=== PATIENT | female | born 1975 | race Caucasian/White ===

== ENCOUNTER 2019-03-05 21:55 | Emergency (ER) | payer SELFPAY ==
[~2019-03-05] VITALS: Ht 170.2 cm; Wt 154.2 kg
--- NOTE | 2019-03-05 22:14 | ED Neurological Problem ---
General Stated Complaint: DIZZY Source: patient Exam Limitations: no limitations History of Present Illness Date Seen by Provider: March 05, 2019 Time Seen by Provider: 21:58 Initial Comments 44-year-old female presents with "dizzy" patient reports that started just prior to arrival. Patient describes her dizziness as being "pain off balance maybe a little bit room spinning. Reports he gets worse with quick head movement. Patient reports she had an episode earlier today when she was at than the [facility]. She reports that that episode lasted about 5 minutes and then went away. Patient denies any recent illness, any chest pain, shortness of breath, nausea, vomiting. Patient reports she has a "pseudotumor and has had surgery on it. She does not have any focal neurologic complaints or focal weakness, difficulty speaking or vision changes. Allergies and Home Medications Allergies Coded Allergies: Penicillins (Verified Allergy, Unknown, 03/05/19) ciprofloxacin (Verified Allergy, Unknown, 03/05/19) Uncoded Allergies: ANY MED THAT INCREASES HEAD PRESSUR (Allergy, Unknown, 03/05/19) Patient Home Medication List Home Medication List Reviewed: Yes Review of Systems Review of Systems Constitutional: No chills, No diaphoresis; dizziness Eyes: Denies Blurred Vision, Denies Photophobia Ears, Nose, Mouth, Throat: denies ear pain Respiratory: No cough, No dyspnea on exertion Cardiovascular: No chest pain Gastrointestinal: No abdominal pain Genitourinary: no symptoms reported Musculoskeletal: no symptoms reported Psychiatric/Neurological: Denies Headache, Denies Numbness, Denies Tingling Past Melslgv-Dtqajx-Xeaphl Hx Past Med/Social Hx: Reviewed Nursing Past Med/Soc Hx Patient Social History Recent Foreign Travel: No Contact w/Someone Who Travel: No Physical Exam Vital Signs Vital Signs - First Documented 03/05/19 22:04 Temp 98.6 Pulse 90 Resp 24 B/P (MAP) 136/62 (86) Pulse Ox 95 O2 Delivery Room Air Capillary Refill : Height, Weight, BMI Height: '" Weight: lbs. oz. 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, no motor/sensory deficits, alert, normal mood/affect, oriented x 3 Crainal Nerves: normal hearing, normal speech, PERRL; No abnormal speech, No facial droop, No facial paresthesias, No facial weakness Motor/Sensory: no motor deficit, no sensory deficit, no pronator drift Focused Exam Lactate Level 03/05/19 22:12: Lactic Acid Level 1.60 Lactic Acid Level Laboratory Tests Test 03/05/19 22:12 Lactic Acid Level 1.60 MMOL/L (0.50-2.00) Progress/Results/Core Measures Results/Orders Lab Results Laboratory Tests Test 03/05/19 22:12 03/05/19 22:15 Range/Units White Blood Count 12.9 H 4.3-11.0 10^3/uL Red Blood Count 4.74 4.35-5.85 10^6/uL Hemoglobin 13.0 11.5-16.0 G/DL Hematocrit 41 35-52 % Mean Corpuscular Volume 85 80-99 FL Mean Corpuscular Hemoglobin 27 25-34 PG Mean Corpuscular Hemoglobin Concent 32 32-36 G/DL Red Cell Distribution Width 15.2 H 10.0-14.5 % Platelet Count 307 130-400 10^3/uL Mean Platelet Volume 10.4 7.4-10.4 FL Neutrophils (%) (Auto) 72 42-75 % Lymphocytes (%) (Auto) 22 12-44 % Monocytes (%) (Auto) 6 0-12 % Eosinophils (%) (Auto) 0 0-10 % Basophils (%) (Auto) 0 0-10 % Neutrophils # (Auto) 9.3 H 1.8-7.8 X 10^3 Lymphocytes # (Auto) 2.8 1.0-4.0 X 10^3 Monocytes # (Auto) 0.8 0.0-1.0 X 10^3 Eosinophils # (Auto) 0.0 0.0-0.3 10^3/uL Basophils # (Auto) 0.0 0.0-0.1 10^3/uL Sodium Level 144 135-145 MMOL/L Potassium Level 4.3 3.6-5.0 MMOL/L Chloride Level 106 98-107 MMOL/L Carbon Dioxide Level 20 L 21-32 MMOL/L Anion Gap 18 H 5-14 MMOL/L Blood Urea Nitrogen 33 H 7-18 MG/DL Creatinine 1.11 0.60-1.30 MG/DL Estimat Glomerular Filtration Rate 53 BUN/Creatinine Ratio 30 Glucose Level 188 H 70-105 MG/DL Lactic Acid Level 1.60 0.50-2.00 MMOL/L Calcium Level 9.2 8.5-10.1 MG/DL Corrected Calcium 9.1 8.5-10.1 MG/DL Magnesium Level 2.1 1.8-2.4 MG/DL Total Bilirubin 0.3 0.1-1.0 MG/DL Aspartate Amino Transf (AST/SGOT) 11 5-34 U/L Alanine Aminotransferase (ALT/SGPT) 12 0-55 U/L Alkaline Phosphatase 100 40-136 U/L Total Protein 7.3 6.4-8.2 GM/DL Albumin 4.1 3.2-4.5 GM/DL Glucometer 199 H 70-110 MG/DL My Orders Orders - LAGOS,AMADOR L DO Cbc With Automated Diff (03/05/19 22:05) Comprehensive Metabolic Panel (03/05/19 22:05) Lactic Acid Analyzer (03/05/19 22:05) Magnesium (03/05/19 22:05) Ua Culture If Indicated (03/05/19 22:05) Ct Head Wo-R/O Stroke (03/05/19 22:05) Chest 1 View Ap/Pa Only (03/05/19 22:05) Accucheck Stat ONCE (03/05/19 22:05) Ekg Tracing (03/05/19 22:05) Vital Signs/I&O 03/05/19 22:04 Temp 98.6 Pulse 90 Resp 24 B/P (MAP) 136/62 (86) Pulse Ox 95 O2 Delivery Room Air Progress Progress Note : Time: 23:33 Progress Note Patient's symptoms have completely resolved and feels similarly better after the meclizine. I discussed with her that her labs with her that she might be slightly dehydrated with a little bit of hemoconcentration is slight elevation her BUNs. Recommend she drinks plenty of fluids and stay hydrated. Otherwise she is better she will be discharged home with no other acute findings. She can use [id number]-tsp-[id number] meclizine as needed if the dizziness returns. She should follow-up with her primary care physician next week for recheck of her symptoms. Initial ECG Impression Date: March 05, 2019 Initial ECG Impression Time: 22:08 Initial ECG Rhythm: Normal Sinus Initial ECG Intervals: Normal Initial ECG Impression: Normal Departure Impression Primary Impression: Vertigo Disposition: 01 HOME, SELF-CARE Condition: Stable Departure-Patient Inst. Referrals: CLARKE RODRÍGUEZ MD (PCP) Primary Care Physician Patient Instructions: Vertigo (a Type of Dizziness) (DC) Add. Discharge Instructions: Drink plenty of fluids Follow-up through primary care physician next week for recheck of her symptoms AMADOR LAGOS DO March 05, 2019 22:14
[2019-03-05 22:42] LABS: BASOPHILS % (AUTO) 0 % (0-10); EOSINOPHILS % (AUTO) 0 % (0-10); HEMATOCRIT 41 % (35-52); LYMPHOCYTES # (AUTO) 2.8 X 10^3 (1.0-4.0); LYMPHOCYTES % (AUTO) 22 % (12-44); MEAN CORPUSCULAR HEMOGLOBIN 27 PG (25-34); MEAN CORPUSCULAR HGB CONC 32 G/DL (32-36); MEAN CORPUSCULAR VOLUME 85 FL (80-99); MEAN PLATELET VOLUME 10.4 FL (7.4-10.4); MONOCYTES # (AUTO) 0.8 X 10^3 (0.0-1.0); MONOCYTES % (AUTO) 6 % (0-12); NEUTROPHILS # (AUTO) 9.3 X 10^3 (1.8-7.8); NEUTROPHILS % (AUTO) 72 % (42-75); PLATELET COUNT 307 10^3/uL (130-400); RED CELL DISTRIBUTION WIDTH 15.2 % (10.0-14.5); WHITE BLOOD COUNT 12.9 10^3/uL (4.3-11.0)
[2019-03-05 22:49] LABS: ALBUMIN 4.1 GM/DL (3.2-4.5); BILIRUBIN,TOTAL 0.3 MG/DL (0.1-1.0); CALCIUM 9.2 MG/DL (8.5-10.1); CREATININE SERUM 1.11 MG/DL (0.60-1.30); MAGNESIUM 2.1 MG/DL (1.8-2.4); POTASSIUM 4.3 MMOL/L (3.6-5.0); TOTAL PROTEIN 7.3 GM/DL (6.4-8.2)
[2019-03-05 23:40] VITALS: BP 113/53
--- OUTSIDE RECORDS SUMMARY | 2019-03-06 01:09 | XMS REPORT | Referral Summary ---
Author Author [facility], [facility], Family Medicine Organization [facility], [facility] Address Unknown Phone Unavailable Care Team Providers Care Patient Relations Liaison Name Role Phone Jazmin Ferrell PCP Encounter VC Date(s): 02/07/16 - 02/07/16 [facility], [address] [id number] Discharge Diagnosis: Acute frontal sinusitis Discharge Disposition: 01-Home or Self Care Attending Physician: Zakia Kirkland APRN Admitting Physician: Zakia Kirkland APRN Vital Signs Most recent to 1 oldest [Reference Range]: Temperature Oral 36.5 degC [35.8-37.3 degC] (02/07/16 1:09 PM) Peripheral Pulse 67 bpm Rate [60-100 bpm] (02/07/16 1:09 PM) Blood Pressure 142/78 mmHg [90-140/60-90 mmHg] *HI* (02/07/16 1:09 PM) SpO2 96 % (02/07/16 1:09 PM) Problem List Condition Effective Dates Status Health Status Informant Allergic Active rhinitis(Confirmed) Pseudotumor Active cerebri(Confirmed) Diabetes(Confirmed) Active Hyperlipidemia(Confi Active rmed) Hypertension(Confirm Active ed) Morbid Active patient obesity(Confirmed) Allergies, Adverse Reactions, Alerts Substance Reaction Severity Status Cipro Active penicillins Active Medications doxycycline monohydrate 100 mg oral capsule 100 mg 1 caps, Oral, BID, X 7 days, # 14 caps, 0 Refill(s), Pharmacy: [id number] #[id number], 1 caps Oral BID,x7 days Start Date: 02/07/16 Stop Date: 02/14/16 Status: Ordered glyBURIDE 5 mg oral tablet 5 mg, Oral, Daily, # 90 tabs, 1 Refill(s), Pharmacy: [facility]/pharmacy #[id number], 5 mg O ral Daily Start Date: 01/25/16 Status: Ordered lisinopril 5 mg oral tablet 5 mg, Oral, Daily, # 90 tabs, 1 Refill(s), Pharmacy: [facility]/pharmacy #[id number], 5 mg O ral Daily Start Date: 01/25/16 Status: Ordered metFORMIN 1000 mg oral tablet, extended release 1,000 mg 1 tabs, Oral, BID, # 180 tabs, 1 Refill(s), [id number], 1 tabs Oral BID Start Date: 01/25/16 Status: Ordered Nasacort AQ sprays, Nasal, Daily, 0 Refill(s) Start Date: 01/23/16 Status: Ordered simvastatin 40 mg oral tablet 40 mg, Oral, Bedtime (once a day), # 90 tabs, 1 Refill(s), Pharmacy: [facility]/pharmac y #[id number], 40 mg Oral Bedtime (once a day) Start Date: 01/25/16 Status: Ordered Results No data available for this section Immunizations No data available for this section Procedures Procedure Date Related Diagnosis Body Site Cholecystectomy Partial hysterectomy1 Tonsillectomy 1has both ovaries Social History Social History Type Response Smoking Status Former smoker Assessment and Plan Extracted from: Title: Office Visit Note Author: Zakia Kirkland APRN Date: 02/07/16 Assessment/Plan 1.Acute frontal sinusitis rx doxycycline 100mg po bid x 7 days Mucinex bid PRN continue Nasacort daily discussed s./s of worrisome symptoms verbal understanding noted Ordered: Office Visit Level 3 Est 88200 Orders: doxycycline, 100 mg 1 caps, Oral, BID, X 7 days, # 14 caps, 0 Refill(s), Pharmacy: [facility]/pharmacy #[id number], 1 caps Oral BID,x7 days
--- OUTSIDE RECORDS SUMMARY | 2019-03-06 01:09 | XMS REPORT | Referral Summary ---
Author Author [facility], [facility], Family Medicine Organization [facility], [facility] Address Unknown Phone Unavailable Care Team Providers Care Decorative Cutting Machine Tender Name Role Phone Jazmin Ferrell PCP Encounter [facility] [id number] Date(s): 04/23/16 - 04/23/16 [facility], [facility] [address] [place] [id number] Discharge Diagnosis: Diabetes Discharge Diagnosis: Hypertension Discharge Disposition: 01-Home or Self Care Attending Physician: Jazmin Ferrell MD Admitting Physician: Jazmin Ferrell MD Vital Signs Most recent to 1 oldest [Reference Range]: Peripheral Pulse 77 bpm Rate [60-100 bpm] (04/23/16 9:40 AM) Blood Pressure 138/82 mmHg [90-140/60-90 mmHg] (04/23/16 9:40 AM) SpO2 98 % (04/23/16 9:40 AM) Problem List Condition Effective Dates Status Health Status Informant Allergic Active rhinitis(Confirmed) Pseudotumor Active cerebri(Confirmed) Diabetes(Confirmed) Active Hyperlipidemia(Confi Active rmed) Hypertension(Confirm Active ed) Morbid Active patient obesity(Confirmed) Allergies, Adverse Reactions, Alerts Substance Reaction Severity Status Cipro Active penicillins Active Medications glyBURIDE 5 mg oral tablet 5 mg, Oral, Daily, # 90 tabs, 1 Refill(s), Pharmacy: [facility]/pharmacy #[id number], 5 mg O ral Daily Start Date: 04/23/16 Status: Ordered lisinopril 5 mg oral tablet 5 mg, Oral, Daily, # 90 tabs, 1 Refill(s), Pharmacy: [facility]/pharmacy #[id number], 5 mg O ral Daily Start Date: 04/23/16 Status: Ordered metFORMIN 1000 mg oral tablet 1,000 mg 1 tabs, Oral, BID, # 180 tabs, 1 Refill(s), Pharmacy: [facility]/pharmacy #[id number], 1 tabs Oral BID Start Date: 04/23/16 Status: Ordered Nasacort AQ sprays, Nasal, Daily, 0 Refill(s) Start Date: 01/23/16 Status: Ordered simvastatin 40 mg oral tablet 40 mg, Oral, Bedtime (once a day), # 90 tabs, 1 Refill(s), Pharmacy: [facility]/pharmac y #[id number], 40 mg Oral Bedtime (once a day) Start Date: 04/23/16 Status: Ordered Results Chemistry Most recent to 1 oldest [Reference Range]: Sodium Lvl [135-144 141 mEq/L mEq/L] (04/23/16 10:07 AM) Potassium Lvl 4.3 mEq/L [3.5-5.2 mEq/L] (04/23/16 10:07 AM) Chloride [99-111 105 mEq/L mEq/L] (04/23/16 10:07 AM) CO2 [22-31 mEq/L] 26 mEq/L (04/23/16 10:07 AM) AGAP [3-20] 10 (04/23/16 10:07 AM) BUN [7-19 mg/dL] 9 mg/dL (04/23/16 10:07 AM) Glucose Lvl [70-99 146 mg/dL mg/dL] *HI* (04/23/16 10:07 AM) Creatinine Lvl 0.85 mg/dL [0.57-1.11 mg/dL] (04/23/16 10:07 AM) eGFR [>60 mL/min] >60 mL/min 1 (04/23/16 10:07 AM) Calcium Lvl 9.5 mg/dL [8.9-10.5 mg/dL] (04/23/16 10:07 AM) Albumin Lvl [3.5-5.0 4.1 gm/dL gm/dL] (04/23/16 10:07 AM) Total Protein 6.8 gm/dL 2 [6.1-7.7 gm/dL] (04/23/16 10:07 AM) Globulin [1.8-4.0 2.7 gm/dL gm/dL] (04/23/16 10:07 AM) ALT [0-55 U/L] 21 U/L (04/23/16 10:07 AM) AST [5-34 U/L] 16 U/L (04/23/16 10:07 AM) Alk Phos [40-150 104 U/L U/L] (04/23/16 10:07 AM) Bili Total [0.2-1.2 0.5 mg/dL mg/dL] (04/23/16 10:07 AM) Chol [0-199 mg/dL] 164 mg/dL (04/23/16 10:07 AM) Trig [0-149 mg/dL] 178 mg/dL *HI* (04/23/16 10:07 AM) HDL [40-84 mg/dL] 37 mg/dL *LOW* (04/23/16 10:07 AM) LDL [0-130 mg/dL] 91 mg/dL (04/23/16 10:07 AM) VLDL Cholesterol 36 mg/dL [0-28 mg/dL] *HI* (04/23/16 10:07 AM) Cardiac Risk 4.4 [0.0-5.0] (04/23/16 10:07 AM) Hgb A1c [4.1-5.6 %] 7.9 % *HI* (04/23/16 10:07 AM) eAvg Glucose 180.0 mg/dL (04/23/16 10:07 AM) 1Result Comment: Multiply eGFR results by 1.21 for race. 2Result Comment: Please note new reference range for adult Protein. Immunizations Vaccine Date Refusal Reason tetanus/diphth/pertuss (Tdap) adult/adol1 03/14/16 1Result Comment: Injected with 25G 1 neddle Procedures Procedure Date Related Diagnosis Body Site Cholecystectomy Partial hysterectomy1 Tonsillectomy 1has both ovaries Social History Social History Type Response Smoking Status Former smoker Assessment and Plan Extracted from: Title: WWE Author: Jazmin Ferrell MD Date: 04/23/16 Assessment/Plan 1.Diabetes 2.Hypertension Well woman exam No further PAP. Mammogram declines. Fasting blood work today and microalbumin today. RTC in 3 months. Ordered: Albumin Level Urine Comprehensive Metabolic Panel Hemoglobin A1c Lipid Panel Extracted from: Title: Ambulatory Patient Education Author: Ramesh Sy MA Date: 04/23/16 Preventive Medicine Health Maintenance, Female Adopting a healthy lifestyle and getting preventive care can go a long way to promote health and wellness. Talk with your health care provider about what schedule of regular examinations is right for you. This is a good chance for you to check in with your provider about disease prevention and staying healthy. In between checkups, there are plenty of things you can do on your own. Experts have done a lot of research about which lifestyle changes and preventive measures are most likely to keep you healthy. Ask your health care provider for more information. WEIGHT AND DIET Eat a healthy diet Be sure to include plenty of vegetables, fruits, low-fat dairy products, and lean protein. Do not eat a lot of foods high in solid fats, added sugars, or salt. Get regular exercise. This is one of the most important things you can do for your health. Most adults should exercise for at least 150 minutes each week. The exercise should increase your heart rate and make you sweat (moderate-intensity exercise). Most adults should also do strengthening exercises at least twice a week. This is in addition to the moderate-intensity exercise. Maintain a healthy weight Body mass index (BMI) is a measurement that can be used to identify possible weight problems. It estimates body fat based on height and weight. Your health care provider can help determine your BMI and help you achieve or maintain a healthy weight. For females 20 years of age and older: A BMI below 18.5 is considered underweight. A BMI of 18.5 to 24.9 is normal. A BMI of 25 to 29.9 is considered overweight. A BMI of 30 and above is considered obese. Watch levels of cholesterol and blood lipids You should start having your blood tested for lipids and cholesterol at 20 years of age, then have this test every 5 years. You may need to have your cholesterol levels checked more often if: Your lipid or cholesterol levels are high. You are older than 50 years of age. You are at high risk for heart disease. CANCER SCREENING Lung Cancer Lung cancer screening is recommended for adults 55 80 years old who are at high risk for lung cancer because of a history of smoking. A yearly low-dose CT scan of the lungs is recommended for people who: Currently smoke. Have quit within the past 15 years. Have at least a 70-mnvu-vitd history of smoking. A pack year is smoking an average of one pack of cigarettes a day for 1 year. Yearly screening should continue until it has been 15 years since you quit. Yearly screening should stop if you develop a health problem that would prevent you from having lung cancer treatment. Breast Cancer Practice breast self-awareness. This means understanding how your breasts normally appear and feel. It also means doing regular breast self-exams. Let your health care provider know about any changes, no matter how small. If you are in your 20s or 30s, you should have a clinical breast exam (CBE) by a health care provider every 1 3 years as part of a regular health exam. If you are 40 or older, have a CBE every year. Also consider having a breast X-ray (mammogram) every year. If you have a family history of breast cancer, talk to your health care provider about genetic screening. If you are at high risk for breast cancer, talk to your health care provider about having an MRI and a mammogram every year. Breast cancer gene (BRCA) assessment is recommended for women who have family members with BRCA-related cancers. BRCA-related cancers include: Breast. Ovarian. Tubal. Peritoneal cancers. Results of the assessment will determine the need for genetic counseling and BRCA1 and BRCA2 testing. Cervical Cancer Your health care provider may recommend that you be screened regularly for cancer of the pelvic organs (ovaries, uterus, and vagina). This screening involves a pelvic examination, including checking for microscopic changes to the surface of your cervix (Pap test). You may be encouraged to have this screening done every 3 years, beginning at age 21. For women ages 30 65, health care providers may recommend pelvic exams and Pap testing every 3 years, or they may recommend the Pap and pelvic exam, combined with testing for human papilloma virus (HPV), every 5 years. Some types of HPV increase your risk of cervical cancer. Testing for HPV may also be done on women of any age with unclear Pap test results. Other health care providers may not recommend any screening for non women who are considered low risk for pelvic cancer and who do not have symptoms. Ask your health care provider if a screening pelvic exam is right for you. If you have had past treatment for cervical cancer or a condition that could lead to cancer, you need Pap tests and screening for cancer for at least 20 years after your treatment. If Pap tests have been discontinued, your risk factors (such as having a new sexual partner) need to be reassessed to determine if screening should resume. Some women have medical problems that increase the chance of getting cervical cancer. In these cases, your health care provider may recommend more frequent screening and Pap tests. Colorectal Cancer This type of cancer can be detected and often prevented. Routine colorectal cancer screening usually begins at 50 years of age and continues through 75 years of age. Your health care provider may recommend screening at an earlier age if you have risk factors for colon cancer. Your health care provider may also recommend using home test kits to check for hidden blood in the stool. A small camera at the end of a tube can be used to examine your colon directly (sigmoidoscopy or colonoscopy). This is done to check for the earliest forms of colorectal cancer. Routine screening usually begins at age 50. Direct examination of the colon should be repeated every 5 10 years through 75 years of age. However, you may need to be screened more often if early forms of precancerous polyps or small growths are found. Skin Cancer Check your skin from head to toe regularly. Tell your health care provider about any new moles or changes in moles, especially if there is a change in a mole's shape or color. Also tell your health care provider if you have a mole that is larger than the size of a pencil eraser. Always use sunscreen. Apply sunscreen liberally and repeatedly throughout the day. Protect yourself by wearing long sleeves, pants, a wide-brimmed hat, and sunglasses whenever you are outside. HEART DISEASE, DIABETES, AND HIGH BLOOD PRESSURE High blood pressure causes heart disease and increases the risk of stroke. High blood pressure is more likely to develop in: People who have blood pressure in the high end of the normal range (130 139/85 89 mm Hg). People who are overweight or obese. People who are . If you are 18 39 years of age, have your blood pressure checked every 3 5 years. If you are 40 years of age or older, have your blood pressure checked every year. You should have your blood pressure measured twice once when you are at a hospital or clinic, and once when you are not at a hospital or clinic. Record the average of the two measurements. To check your blood pressure when you are not at a hospital or clinic, you can use: An automated blood pressure machine at a pharmacy. A home blood pressure monitor. If you are between 55 years and 79 years old, ask your health care provider if you should take aspirin to prevent strokes. Have regular diabetes screenings. This involves taking a blood sample to check your fasting blood sugar level. If you are at a normal weight and have a low risk for diabetes, have this test once every three years after 45 years of age. If you are overweight and have a high risk for diabetes, consider being tested at a younger age or more often. PREVENTING INFECTION Hepatitis B If you have a higher risk for hepatitis B, you should be screened for this virus. You are considered at high risk for hepatitis B if: You were born in a country where hepatitis B is common. Ask your health care provider which countries are considered high risk. Your parents were born in a high-risk country, and you have not been immunized against hepatitis B (hepatitis B vaccine). You have HIV or AIDS. You use needles to inject street drugs. You live with someone who has hepatitis B. You have had sex with someone who has hepatitis B. You get hemodialysis treatment. You take certain medicines for conditions, including cancer, organ transplantation, and autoimmune conditions. Hepatitis C Blood testing is recommended for: Everyone born from 1945 through 1965. Anyone with known risk factors for hepatitis C. Sexually transmitted infections (STIs) You should be screened for sexually transmitted infections (STIs) including gonorrhea and chlamydia if: You are sexually active and are younger than 24 years of age. You are older than 24 years of age and your health care provider tells you that you are at risk for this type of infection. Your sexual activity has changed since you were last screened and you are at an increased risk for chlamydia or gonorrhea. Ask your health care provider if you are at risk. If you do not have HIV, but are at risk, it may be recommended that you take a prescription medicine daily to prevent HIV infection. This is called pre- exposure prophylaxis (PrEP). You are considered at risk if: You are sexually active and do not regularly use condoms or know the HIV status of your partner(s). You take drugs by injection. You are sexually active with a partner who has HIV. Talk with your health care provider about whether you are at high risk of being infected with HIV. If you choose to begin PrEP, you should first be tested for HIV. You should then be tested every 3 months for as long as you are taking PrEP. If you are premenopausal and you may become , ask your health care provider about preconception counseling. If you may become , take 400 to 800 micrograms (mcg) of folic acid every day. If you want to prevent , talk to your health care provider about control (contraception). OSTEOPOROSIS AND MENOPAUSE Osteoporosis is a disease in which the bones lose minerals and strength with aging. This can result in serious bone fractures. Your risk for osteoporosis can be identified using a bone density scan. If you are 65 years of age or older, or if you are at risk for osteoporosis and fractures, ask your health care provider if you should be screened. Ask your health care provider whether you should take a calcium or vitamin D supplement to lower your risk for osteoporosis. Menopause may have certain physical symptoms and risks. Hormone replacement therapy may reduce some of these symptoms and risks. Talk to your health care provider about whether hormone replacement therapy is right for you. HOME CARE INSTRUCTIONS Schedule regular health, dental, and eye exams. Stay current with your immunizations. Do not use any tobacco products including cigarettes, chewing tobacco, or electronic cigarettes. If you are , do not drink alcohol. If you are , limit how much and how often you drink alcohol. Limit alcohol intake to no more than 1 drink per day for non women. One drink equals 12 ounces of beer, 5 ounces of wine, or 1 ounces of hard liquor. Do not use street drugs. Do not share needles. Ask your health care provider for help if you need support or information about quitting drugs. Tell your health care provider if you often feel depressed. Tell your health care provider if you have ever been abused or do not feel safe at home. This information is not intended to replace advice given to you by your health care provider. Make sure you discuss any questions you have with your health care provider. Document Released: 04/13/2012 Document Revised: 10/20/2015 Document Reviewed: 08/31/2014 Exit[employer] Patient Information 2016 [employer]. No follow up information was provided.
--- OUTSIDE RECORDS SUMMARY | 2019-03-06 01:10 | XMS REPORT | Referral Summary ---
Author Author [facility], [facility], Family Medicine Organization [facility], [facility] Address Unknown Phone Unavailable Care Team Providers Care Negative Notcher Name Role Phone Jazmin Ferrell PCP Encounter [facility] Date(s): 08/07/16 - 08/07/16 [facility], [facility], Family Medicine [address] [place] [id number] Discharge Disposition: 01-Home or Self Care Attending Physician: Jazmin Ferrell MD Admitting Physician: Jazmin Ferrell MD Vital Signs Most recent to 1 oldest [Reference Range]: Peripheral Pulse 79 bpm Rate [60-100 bpm] (08/07/16 2:42 PM) Blood Pressure 126/80 mmHg [90-140/60-90 mmHg] (08/07/16 2:42 PM) SpO2 97 % (08/07/16 2:42 PM) Problem List Condition Effective Dates Status Health Status Informant Allergic Active rhinitis(Confirmed) Pseudotumor Active cerebri(Confirmed) Diabetes(Confirmed) Active Hyperlipidemia(Confi Active rmed) Hypertension(Confirm Active ed) Morbid Active patient obesity(Confirmed) Allergies, Adverse Reactions, Alerts Substance Reaction Severity Status Cipro Active penicillins Active Medications lisinopril 10 mg oral tablet 10 mg 1 tabs, Oral, Daily, # 90 tabs, 1 Refill(s), Pharmacy: [facility]/pharmacy #[id number] , 1 tabs Oral Daily Start Date: 04/24/16 Status: Ordered metFORMIN 1000 mg oral tablet 1,000 mg 1 tabs, Oral, BID, # 180 tabs, 1 Refill(s), Pharmacy: [facility]/pharmacy #[id number], 1 tabs Oral BID Start Date: 04/23/16 Status: Ordered Nasacort AQ sprays, Nasal, Daily, 0 Refill(s) Start Date: 01/23/16 Status: Ordered simvastatin 40 mg oral tablet 40 mg, Oral, Bedtime (once a day), # 90 tabs, 1 Refill(s), Pharmacy: [facility]/pharmac y #[id number], 40 mg Oral Bedtime (once a day) Start Date: 07/24/16 Status: Ordered Results Chemistry Most recent to 1 oldest [Reference Range]: TSH with Reflex Free 2.17 T4 [0.35-4.94] (08/07/16 2:57 PM) Immunizations Vaccine Date Refusal Reason tetanus/diphth/pertuss (Tdap) adult/adol1 03/14/16 1Result Comment: Injected with 25G 1 neddle Procedures Procedure Date Related Diagnosis Body Site Cholecystectomy Partial hysterectomy1 Tonsillectomy 1has both ovaries Social History Social History Type Response Smoking Status Former smoker Assessment and Plan Extracted from: Title: Office Visit Note Author: Jazmin Ferrell MD Date: 08/07/16 Assessment/Plan Hair loss Will check TSh today. D/W ptdifferential being hormonal hair loss and telogen effluvium from weight loss Ordered: Routine Venipuncture TSH with Reflex Free T4
--- OUTSIDE RECORDS SUMMARY | 2019-03-06 01:10 | XMS REPORT | Referral Summary ---
Author Author [facility], [facility], Family Medicine Organization [facility], [facility] Address Unknown Phone Unavailable Care Team Providers Care Investigative Research Specialist Name Role Phone Jazmin Ferrell PCP Encounter [facility] Date(s): 11/12/16 - 11/12/16 [facility], [facility], Family Medicine [address] [place] [id number] Discharge Diagnosis: Hypertension Discharge Disposition: 01-Home or Self Care Attending Physician: Jazmin Ferrell MD Admitting Physician: Jazmin Ferrell MD Vital Signs Most recent to 1 oldest [Reference Range]: Peripheral Pulse 81 bpm Rate [60-100 bpm] (11/12/16 10:23 AM) Blood Pressure 142/82 mmHg [90-140/60-90 mmHg] *HI* (11/12/16 10:23 AM) SpO2 98 % (11/12/16 10:23 AM) Problem List Condition Effective Dates Status Health Status Informant Allergic Active rhinitis(Confirmed) Pseudotumor Active cerebri(Confirmed) Diabetes(Confirmed) Active Hyperlipidemia(Confi Active rmed) Hypertension(Confirm Active ed) Morbid Active patient obesity(Confirmed) Allergies, Adverse Reactions, Alerts Substance Reaction Severity Status Cipro Active penicillins Active Medications lisinopril 10 mg oral tablet See Instructions, TAKE 1 TABLET BY MOUTH DAILY., # 90 tabs, 1 Refill(s), [facility]Rx: [facility] #[id number] Start Date: 10/21/16 Status: Ordered metFORMIN 1000 mg oral tablet See Instructions, TAKE 1 TABLET BY MOUTH TWICE A DAY, # 180 tabs, 1 Refill(s), e Rx: [facility] #[id number] Start Date: 10/21/16 Status: Ordered Nasacort AQ sprays, Nasal, Daily, 0 Refill(s) Start Date: 01/23/16 Status: Ordered simvastatin 40 mg oral tablet 40 mg, Oral, Bedtime (once a day), # 90 tabs, 1 Refill(s), Pharmacy: [facility]/pharmac y #[id number], 40 mg Oral Bedtime (once a day) Start Date: 07/24/16 Status: Ordered Results Chemistry Most recent to 1 oldest [Reference Range]: Hgb A1c [4.1-5.6 %] 7.7 % *HI* (11/12/16 10:34 AM) eAvg Glucose 174.3 mg/dL (11/12/16 10:34 AM) Immunizations Given and Recorded Vaccine Date Status Refusal Reason tetanus/diphth/pertuss (Tdap) adult/adol1 03/14/16 Given 1Result Comment: Injected with 25G 1 neddle Procedures Procedure Date Related Diagnosis Body Site Collection of venous blood by venipuncture 11/12/16 Cholecystectomy Partial hysterectomy1 Tonsillectomy 1has both ovaries Social History Social History Type Response Smoking Status Former smoker Assessment and Plan Extracted from: Title: Chronic Author: Jazmin Ferrell MD Date: 11/12/16 Assessment/Plan 1.Hypertension Monitor. Dietary changes and recheck with next appt. Diabetes A1C and microalbumin today. Ordered: Albumin Level Urine Collection Of Venous Blood By Venipuncture [id number] Hemoglobin A1c
--- OUTSIDE RECORDS SUMMARY | 2019-03-06 01:10 | XMS REPORT | Referral Summary ---
Author Author [facility], [facility], Family Medicine Organization [facility], [facility] Address Unknown Phone Unavailable Care Team Providers Care Bead Trimmer Name Role Phone Jazmin Ferrell PCP Encounter VC Date(s): 01/23/16 - 01/23/16 [facility], [facility] Medicine [address] [place] [id number] Discharge Diagnosis: Pseudotumor cerebri Discharge Diagnosis: Diabetes Discharge Diagnosis: Hyperlipidemia Discharge Diagnosis: Hypertension Discharge Disposition: 01-Home or Self Care Attending Physician: Jazmin Ferrell MD Vital Signs Most recent to 1 oldest [Reference Range]: Peripheral Pulse 78 bpm Rate [60-100 bpm] (01/23/16 12:52 PM) Blood Pressure 128/82 mmHg [90-140/60-90 mmHg] (01/23/16 12:52 PM) SpO2 96 % (01/23/16 12:52 PM) Problem List Condition Effective Dates Status Health Status Informant Allergic Active rhinitis(Confirmed) Pseudotumor Active cerebri(Confirmed) Diabetes(Confirmed) Active Hyperlipidemia(Confi Active rmed) Hypertension(Confirm Active ed) Morbid Active patient obesity(Confirmed) Allergies, Adverse Reactions, Alerts Substance Reaction Severity Status Cipro Active penicillins Active Medications glyBURIDE 5 mg oral tablet 5 mg, Oral, Daily, # 90 tabs, 1 Refill(s), Pharmacy: [facility], 5 m g Oral Daily Start Date: 01/23/16 Status: Ordered lisinopril 5 mg oral tablet 5 mg, Oral, Daily, # 90 tabs, 1 Refill(s), Pharmacy: [facility], 5 m g Oral Daily Start Date: 01/23/16 Status: Ordered metFORMIN 1000 mg oral tablet 1,000 mg, Oral, BID, # 180 tabs, 1 Refill(s), Pharmacy: [facility], 1,000 mg Oral BID Start Date: 01/23/16 Status: Ordered Nasacort AQ sprays, Nasal, Daily, 0 Refill(s) Start Date: 01/23/16 Status: Ordered simvastatin 40 mg oral tablet 40 mg, Oral, Bedtime (once a day), # 90 tabs, 1 Refill(s), Pharmacy: [facility], 40 mg Oral Bedtime (once a day) Start Date: 01/23/16 Status: Ordered Results Chemistry Most recent to 1 oldest [Reference Range]: Sodium Lvl [135-144 139 mEq/L mEq/L] (01/23/16 1:27 PM) Potassium Lvl 4.6 mEq/L [3.5-5.2 mEq/L] (01/23/16 1:27 PM) Chloride [99-111 103 mEq/L mEq/L] (01/23/16 1:27 PM) CO2 [22-31 mEq/L] 29 mEq/L (01/23/16 1:27 PM) AGAP [3-20] 7 (01/23/16 1:27 PM) BUN [7-19 mg/dL] 9 mg/dL (01/23/16 1:27 PM) Glucose Lvl [70-99 256 mg/dL mg/dL] *HI* (01/23/16 1:27 PM) Creatinine Lvl 0.86 mg/dL [0.57-1.11 mg/dL] (01/23/16 1:27 PM) eGFR [>60 mL/min] >60 mL/min 1 (01/23/16 1:27 PM) Calcium Lvl 8.9 mg/dL [8.9-10.5 mg/dL] (01/23/16 1:27 PM) Albumin Lvl [3.5-5.0 3.9 gm/dL gm/dL] (01/23/16 1:27 PM) Total Protein 6.7 gm/dL [6.4-8.3 gm/dL] (01/23/16 1:27 PM) Globulin [1.8-4.0 2.8 gm/dL gm/dL] (01/23/16 1:27 PM) ALT [0-55 U/L] 13 U/L (01/23/16 1:27 PM) AST [5-34 U/L] 10 U/L (01/23/16 1:27 PM) Alk Phos [40-150 103 U/L U/L] (01/23/16 1:27 PM) Bili Total [0.2-1.2 0.3 mg/dL mg/dL] (01/23/16 1:27 PM) Hgb A1c [4.1-5.6 %] 7.3 % *HI* (01/23/16 1:27 PM) eAvg Glucose 162.8 mg/dL (01/23/16 1:27 PM) 1Result Comment: Multiply eGFR results by 1.21 for race. Immunizations No data available for this section Procedures Procedure Date Related Diagnosis Body Site Cholecystectomy Partial hysterectomy1 Tonsillectomy 1has both ovaries Social History Social History Type Response Smoking Status Former smoker Assessment and Plan Extracted from: Title: Office Visit Note Author: Jazmin Ferrell MD Date: 01/23/16 Assessment/Plan Diabetes A1c today. Physical in 3 months. Refill meds. Record release today. Ordered: Comprehensive Metabolic Panel Hemoglobin A1c Hyperlipidemia Fasting lipid with upcoming physical. Meds refilled. Ordered: Comprehensive Metabolic Panel Hypertension Stable on current regimen Ordered: Comprehensive Metabolic Panel Pseudotumor cerebri Needs eye appt - pt will schedule. stable.
--- OUTSIDE RECORDS SUMMARY | 2019-03-06 01:10 | XMS REPORT | Referral Summary ---
Author Author [facility], [facility], Family Medicine Organization [facility], [facility] Family [facility] Address Unknown Phone Unavailable Care Team Providers Care Oncology Rep Name Role Phone Jazmin Ferrell PCP Encounter VC Date(s): 05/28/16 - 05/28/16 [facility], [facility], Family Medicine [address] [place] [id number] Discharge Disposition: 01-Home or Self Care Attending Physician: Jazmin Ferrell MD Admitting Physician: Jazmin Ferrell MD Vital Signs No data available for this section Problem List Condition Effective Dates Status Health Status Informant Allergic Active rhinitis(Confirmed) Pseudotumor Active cerebri(Confirmed) Diabetes(Confirmed) Active Hyperlipidemia(Confi Active rmed) Hypertension(Confirm Active ed) Morbid Active patient obesity(Confirmed) Allergies, Adverse Reactions, Alerts Substance Reaction Severity Status Cipro Active penicillins Active Medications glyBURIDE 5 mg oral tablet 5 mg, Oral, Daily, # 90 tabs, 1 Refill(s), Pharmacy: [facility]/pharmacy #[id number], 5 mg O ral Daily Start Date: 04/23/16 Status: Ordered lisinopril 10 mg oral tablet 10 mg 1 tabs, Oral, Daily, # 90 tabs, 1 Refill(s), Pharmacy: [facility]/pharmacy #[id number] , 1 tabs Oral Daily Start Date: 04/24/16 Status: Ordered metFORMIN 1000 mg oral tablet 1,000 mg 1 tabs, Oral, BID, # 180 tabs, 1 Refill(s), Pharmacy: [facility]/pharmacy #[id number], 1 tabs Oral BID Start Date: 04/23/16 Status: Ordered Nasacort AQ sprays, Nasal, Daily, 0 Refill(s) Start Date: 01/23/16 Status: Ordered simvastatin 40 mg oral tablet 40 mg, Oral, Bedtime (once a day), # 90 tabs, 1 Refill(s), Pharmacy: [facility][id number], 40 mg Oral Bedtime (once a day) Start Date: 04/23/16 Status: Ordered Results No data available for this section Immunizations Vaccine Date Refusal Reason tetanus/diphth/pertuss (Tdap) adult/adol1 03/14/16 1Result Comment: Injected with 25G 1 neddle Procedures Procedure Date Related Diagnosis Body Site Cholecystectomy Partial hysterectomy1 Tonsillectomy 1has both ovaries Social History Social History Type Response Smoking Status Former smoker Assessment and Plan No data available for this section
--- OUTSIDE RECORDS SUMMARY | 2019-03-06 01:10 | XMS REPORT | Referral Summary ---
Author Author [facility] Organization [facility] Address Unknown Phone Unavailable Care Team Providers Care Neighborhood Worker Name Role Phone Jazmin Ferrell PCP Encounter [facility] [id number] Date(s): 03/13/16 - 03/13/16 [facility] [address] [place] [address] [facility] Discharge Diagnosis: Insect bite Discharge Disposition: 01-Home or Self Care Attending Physician: Jack ChristieC Attending Physician: Provider, Immediate Care Admitting Physician: Provider, Immediate Care Vital Signs Most recent to 1 oldest [Reference Range]: Temperature Oral 37.1 degC [35.8-37.3 degC] (03/13/16 1:13 PM) Peripheral Pulse 106 bpm Rate [60-100 bpm] *HI* (03/13/16 1:13 PM) SpO2 94 % (03/13/16 1:13 PM) Problem List Condition Effective Dates Status Health Status Informant Allergic Active rhinitis(Confirmed) Pseudotumor Active cerebri(Confirmed) Diabetes(Confirmed) Active Hyperlipidemia(Confi Active rmed) Hypertension(Confirm Active ed) Morbid Active patient obesity(Confirmed) Allergies, Adverse Reactions, Alerts Substance Reaction Severity Status Cipro Active penicillins Active Medications clindamycin 300 mg oral capsule 300 mg 1 caps, Oral, q8hr, X 10 days, # 30 caps, 0 Refill(s), [id number], 1 caps Oral q8hr,x10 days Start Date: 03/13/16 Stop Date: 03/23/16 Status: Ordered glyBURIDE 5 mg oral tablet 5 mg, Oral, Daily, # 90 tabs, 1 Refill(s), Pharmacy: [facility]/pharmacy #[id number], 5 mg O ral Daily Start Date: 01/25/16 Status: Ordered lisinopril 5 mg oral tablet 5 mg, Oral, Daily, # 90 tabs, 1 Refill(s), Pharmacy: [facility]/pharmacy #[id number], 5 mg O ral Daily Start Date: 01/25/16 Status: Ordered metFORMIN 1000 mg oral tablet, extended release 1,000 mg 1 tabs, Oral, BID, # 180 tabs, 1 Refill(s), Pharmacy: [facility]/pharmacy #100 70, 1 tabs Oral BID Start Date: 01/25/16 Status: Ordered Nasacort AQ sprays, Nasal, Daily, 0 Refill(s) Start Date: 01/23/16 Status: Ordered predniSONE 20 mg oral tablet 20 mg 1 tabs, Oral, BID, X 5 days, # 10 tabs, 0 Refill(s), [facility]: [facility][id number], 1 tabs Oral BID,x5 days Start Date: 03/13/16 Stop Date: 03/18/16 Status: Ordered simvastatin 40 mg oral tablet 40 mg, Oral, Bedtime (once a day), # 90 tabs, 1 Refill(s), Pharmacy: [facility] #[id number], 40 mg Oral Bedtime (once a day) Start Date: 01/25/16 Status: Ordered Results No data available for this section Immunizations No data available for this section Procedures Procedure Date Related Diagnosis Body Site Cholecystectomy Partial hysterectomy1 Tonsillectomy 1has both ovaries Social History Social History Type Response Smoking Status Former smoker Assessment and Plan Extracted from: Title: Office Visit Note Author: Jack Christie PA-C Date: 03/13/16 Assessment/Plan 1.Insect bite Pt given rx for Clindamycin and prednisone; pt has taken oral prednisone before with complication and we discussed close monitoring of BS. No necrosis or abscess noted on exam. No fever, no chills/body aches/sweats. We discussed options for treatment including transfer to an ER for IV antibiotics/steroids/wound care, but pt declined. Risks and benefits discussed; pt was aware that delay of care could result in increased morbidity. Pt will monitor rash; if symptoms worsen she will go directly to an ER for further evaluation . Patient stable upon discharge, alert and orientated with no apparent distress, and indicated understanding of discharge instructions. Ordered: Office Visit Level 3 Est 36618 Orders: clindamycin, 300 mg 1 caps, Oral, q8hr, X 10 days, # 30 caps, 0 Refill(s), Pharmacy: [facility]/pharmacy #[id number], 1 caps Oral q8hr,x10 days predniSONE, 20 mg 1 tabs, Oral, BID, X 5 days, # 10 tabs, 0 Refill(s), Pharmacy: [facility]/pharmacy #[id number], 1 tabs Oral BID,x5 days
--- OUTSIDE RECORDS SUMMARY | 2019-03-06 01:10 | XMS REPORT | Referral Summary ---
Author Author [facility] Organization [facility] Address Unknown Phone Unavailable Care Team Providers Care Scrap Sorter Name Role Phone No PCP, Pt States PCP Encounter VC Date(s): 10/03/15 - 10/03/15 [facility] [address] [place] [address] [facility] Discharge Disposition: 01-Home or Self Care Attending Physician: Jack Christie PA-C Attending Physician: Provider, Immediate Care Attending Physician: Aorn Rudd MD Admitting Physician: Provider, Immediate Care Vital Signs Most recent to 1 oldest [Reference Range]: Temperature Oral 36.6 degC [35.8-37.3 degC] (10/03/15 2:44 PM) Peripheral Pulse 84 bpm Rate [60-100 bpm] (10/03/15 2:44 PM) Blood Pressure 135/77 mmHg [90-140/60-90 mmHg] (10/03/15 2:44 PM) SpO2 92 % (10/03/15 2:44 PM) Problem List Condition Effective Dates Status Health Status Informant Morbid Active patient obesity(Confirmed) Allergies, Adverse Reactions, Alerts Substance Reaction Severity Status Cipro Active penicillins Active Medications doxycycline hyclate 100 mg oral tablet 100 mg 1 tabs, Oral, BID, X 10 days, # 20 tabs, 0 Refill(s), [facility], 1 tabs Oral BID,x10 days Start Date: 10/03/15 Stop Date: 10/13/15 Status: Ordered glyBURIDE Oral, Daily, 0 Refill(s) Start Date: 08/21/15 Status: Ordered lisinopril Oral, Daily, 0 Refill(s) Start Date: 11/9/15 Status: Ordered metFORMIN Oral, 0 Refill(s) Start Date: 08/21/15 Status: Ordered simvastatin Oral, Bedtime (once a day), 0 Refill(s) Start Date: 08/21/15 Status: Ordered Results No data available for this section Immunizations No data available for this section Procedures No data available for this section Social History Social History Type Response Smoking Status Former smoker Assessment and Plan Extracted from: Title: Office Visit Note Author: Aron Rudd MD Date: 10/03/15 Assessment/Plan 1.Sinusitis rx of doxycyline 100mg bid for 10 days and recommend anti- histamine as needed. May continue on current nasal spray at home. 2.Lumbar strain Mild tenderness of paraspinal muscles.Unremarkable UA, no change of urinary habit. Orders: doxycycline, 100 mg 1 tabs, Oral, BID, X 10 days, # 20 tabs, 0 Refill(s), Pharmacy: [facility], 1 tabs Oral BID,x10 days
--- OUTSIDE RECORDS SUMMARY | 2019-03-06 01:10 | XMS REPORT | Referral Summary ---
Author Author [facility], [facility], Family Medicine Organization [facility], [facility] Address Unknown Phone Unavailable Care Team Providers Care Mainframe Architect Name Role Phone Jazmin Ferrell PCP Encounter VC Date(s): 05/21/16 - 05/21/16 [facility], [facility], Family Medicine [address] [place] [id number] Discharge Disposition: 01-Home or Self Care Attending Physician: Jazmin Ferrell MD Admitting Physician: Jazmin Ferrell MD Vital Signs Most recent to 1 oldest [Reference Range]: Blood Pressure 146/80 mmHg [90-140/60-90 mmHg] *HI* (05/21/16 10:54 AM) Problem List Condition Effective Dates Status Health Status Informant Allergic Active rhinitis(Confirmed) Pseudotumor Active cerebri(Confirmed) Diabetes(Confirmed) Active Hyperlipidemia(Confi Active rmed) Hypertension(Confirm Active ed) Morbid Active patient obesity(Confirmed) Allergies, Adverse Reactions, Alerts Substance Reaction Severity Status Cipro Active penicillins Active Medications glyBURIDE 5 mg oral tablet 5 mg, Oral, Daily, # 90 tabs, 1 Refill(s), Pharmacy: [facility]/pharmacy #[id number], 5 mg O ral Daily Start Date: 04/23/16 Status: Ordered lisinopril 10 mg oral tablet 10 mg 1 tabs, Oral, Daily, # 90 tabs, 1 Refill(s), Pharmacy: [facility]/pharmacy #[id number] , 1 tabs Oral Daily Start Date: 04/24/16 Status: Ordered metFORMIN 1000 mg oral tablet 1,000 mg 1 tabs, Oral, BID, # 180 tabs, 1 Refill(s), Pharmacy: [facility]/pharmacy #[id number], 1 tabs Oral BID Start Date: 04/23/16 Status: Ordered Nasacort AQ sprays, Nasal, Daily, 0 Refill(s) Start Date: 01/23/16 Status: Ordered simvastatin 40 mg oral tablet 40 mg, Oral, Bedtime (once a day), # 90 tabs, 1 Refill(s), Pharmacy: [facility] #[id number], 40 mg Oral Bedtime (once a day) [...]
--- OUTSIDE RECORDS SUMMARY | 2019-03-06 01:10 | XMS REPORT | Referral Summary ---
Author Author [facility] Organization [facility] Address Unknown Phone Unavailable Care Team Providers Care Electronics Scale Tester Name Role Phone Jazmin Ferrell PCP Encounter VC Date(s): 03/14/16 - 03/14/16 [facility] [address] [place], [place] [address] [phone] Discharge Diagnosis: Spider bite wound Discharge Disposition: 01-Home or Self Care Attending Physician: Soren Santos MD Admitting Physician: Soren Santos MD Vital Signs Most recent to 1 oldest [Reference Range]: Temperature Oral 36.6 degC [35.8-37.3 degC] (03/14/16 11:22 AM) Peripheral Pulse 74 bpm Rate [60-100 bpm] (03/14/16 10:21 AM) Respiratory Rate 18 br/min [14-20 br/min] (03/14/16 11:22 AM) Blood Pressure 133/80 mmHg [90-140/60-90 mmHg] (03/14/16 11:22 AM) SpO2 97 % (03/14/16 11:22 AM) Problem List Condition Effective Dates Status Health Status Informant Allergic Active rhinitis(Confirmed) Pseudotumor Active cerebri(Confirmed) Diabetes(Confirmed) Active Hyperlipidemia(Confi Active rmed) Hypertension(Confirm Active ed) Morbid Active patient obesity(Confirmed) Allergies, Adverse Reactions, Alerts Substance Reaction Severity Status Cipro Active penicillins Active Medications clindamycin 300 mg oral capsule 300 mg 1 caps, Oral, q8hr, X 10 days, # 30 caps, 0 Refill(s), [facility]: [facility][id number], 1 caps Oral q8hr,x10 days Start Date: 03/13/16 Stop Date: 03/23/16 Status: Ordered glyBURIDE 5 mg oral tablet 5 mg, Oral, Daily, # 90 tabs, 1 Refill(s), Pharmacy: [facility]/pharmacy #[id number], 5 mg O ral Daily Start Date: 01/25/16 Status: Ordered lisinopril 5 mg oral tablet 5 mg, Oral, Daily, # 90 tabs, 1 Refill(s), Pharmacy: [facility]/pharmacy #[id number], 5 mg O ral Daily Start Date: 01/25/16 Status: Ordered metFORMIN 1000 mg oral tablet, extended release 1,000 mg 1 tabs, Oral, BID, # 180 tabs, 1 Refill(s), Pharmacy: [facility]/pharmacy #[id number], 1 tabs Oral BID Start Date: 01/25/16 Status: Ordered Nasacort AQ sprays, Nasal, Daily, 0 Refill(s) Start Date: 01/23/16 Status: Ordered predniSONE 20 mg oral tablet 20 mg 1 tabs, Oral, BID, X 5 days, # 10 tabs, 0 Refill(s), Pharmacy: [facility] #[id number], 1 tabs Oral BID,x5 days Start Date: 03/13/16 Stop Date: 03/18/16 Status: Ordered simvastatin 40 mg oral tablet 40 mg, Oral, Bedtime (once a day), # 90 tabs, 1 Refill(s), [id number], 40 mg Oral Bedtime (once a day) [...]
--- OUTSIDE RECORDS SUMMARY | 2019-03-06 01:11 | XMS REPORT | Continuity of Care Document ---
Demographics x Preferred Language Unknown Marital Status Unknown Congregational Affiliation Unknown Race Unknown Ethnic Group Unknown Author Organization Unknown Address Unknown Allergies There is no data. Medications There is no data. Problems There is no data. Procedures There is no data. Results Test Result Range CBC w/MANUAL DIFF - 01/27/19 08:00 WHITE BLOOD CELL COUNT 10.1 Thousand/uL 3.8-10.8 RED BLOOD CELL COUNT 4.77 Million/uL 3.80-5.10 HEMOGLOBIN 13.1 g/dL 11.7-15.5 HEMATOCRIT 40.1 % 35.0-45.0 MCV 84.1 fL 80.0-100.0 MCH 27.5 pg 27.0-33.0 MCHC 32.7 g/dL 32.0-36.0 RDW 14.7 % 11.0-15.0 PLATELET COUNT 316 Thousand/uL 140-400 MPV 11.4 fL 7.5-12.5 ABSOLUTE NEUTROPHILS 7080 cells/uL 6121-1147 ABSOLUTE MONOCYTES 525 cells/uL 200-950 ABSOLUTE EOSINOPHILS 414 cells/uL 15-500 ABSOLUTE BASOPHILS 0 cells/uL 0-200 NEUTROPHILS 70.1 % NRG LYMPHOCYTES 20.6 % NRG MONOCYTES 5.2 % NRG EOSINOPHILS 4.1 % NRG BASOPHILS 0 % NRG ABSOLUTE LYMPHOCYTES 2081 cells/uL 850-3900 PLATELET ESTIMATION ADEQUATE ADEQUATE COMMENT(S) NRG A1C - 01/27/19 08:00 HEMOGLOBIN A1c 6.3 % of total Hgb <5.7 Encounters ACCT No. Visit Date/Time Discharge Status Pt. Type Provider Facility Loc./Unit Complaint [id number] 01/29/2019 08:00:00 01/29/2019 23:59:59 [facility] [id number] 01/27/2019 09:00:00 Document Registration
--- OUTSIDE RECORDS SUMMARY | 2019-03-06 01:11 | XMS REPORT | Referral Summary ---
Author Author [facility], [facility], Family Medicine Organization [facility], [facility] Address Unknown Phone Unavailable Care Team Providers Care Shank Stapler Name Role Phone Jazmin Ferrell PCP Encounter [facility] [id number] Date(s): 07/24/16 - 07/24/16 [facility], [facility] Family Medicine [address] [place] [id number] Discharge Diagnosis: Diabetes Discharge Diagnosis: Hypertension Discharge Diagnosis: Allergic rhinitis Discharge Disposition: 01-Home or Self Care Attending Physician: Jazmin Ferrell MD Admitting Physician: Jazmin Ferrell MD Vital Signs Most recent to 1 oldest [Reference Range]: Peripheral Pulse 90 bpm Rate [60-100 bpm] (07/24/16 10:26 AM) Blood Pressure 128/84 mmHg [90-140/60-90 mmHg] (07/24/16 10:26 AM) SpO2 98 % (07/24/16 10:26 AM) Problem List Condition Effective Dates Status Health Status Informant Allergic Active rhinitis(Confirmed) Pseudotumor Active cerebri(Confirmed) Diabetes(Confirmed) Active Hyperlipidemia(Confi Active rmed) Hypertension(Confirm Active ed) Morbid Active patient obesity(Confirmed) Allergies, Adverse Reactions, Alerts Substance Reaction Severity Status Cipro Active penicillins Active Medications lisinopril 10 mg oral tablet 10 mg 1 tabs, Oral, Daily, # 90 tabs, 1 Refill(s), Pharmacy: [facility]/pharmacy #[id number] , 1 tabs Oral Daily Start Date: 04/24/16 Status: Ordered metFORMIN 1000 mg oral tablet 1,000 mg 1 tabs, Oral, BID, # 180 tabs, 1 Refill(s), Pharmacy: [facility]/pharmacy #[id number], 1 tabs Oral BID Start Date: 04/23/16 Status: Ordered Nasacort AQ sprays, Nasal, Daily, 0 Refill(s) Start Date: 01/23/16 Status: Ordered simvastatin 40 mg oral tablet 40 mg, Oral, Bedtime (once a day), # 90 tabs, 1 Refill(s), Pharmacy: [facility] #[id number], 40 mg Oral Bedtime (once a day) Start Date: 07/24/16 Status: Ordered Results Chemistry Most recent to 1 oldest [Reference Range]: Sodium Lvl [135-144 142 mEq/L mEq/L] (07/24/16 10:40 AM) Potassium Lvl 4.5 mEq/L [3.5-5.2 mEq/L] (07/24/16 10:40 AM) Chloride [99-111 103 mEq/L mEq/L] (07/24/16 10:40 AM) CO2 [22-31 mEq/L] 25 mEq/L (07/24/16 10:40 AM) AGAP [3-20] 14 (07/24/16 10:40 AM) BUN [7-19 mg/dL] 10 mg/dL (07/24/16 10:40 AM) Glucose Lvl [70-99 144 mg/dL mg/dL] *HI* (07/24/16 10:40 AM) Creatinine Lvl 1.01 mg/dL [0.57-1.11 mg/dL] (07/24/16 10:40 AM) eGFR [>60 mL/min] 60 mL/min 1 (07/24/16 10:40 AM) Calcium Lvl 9.5 mg/dL [8.9-10.5 mg/dL] (07/24/16 10:40 AM) Albumin Lvl [3.5-5.0 4.1 gm/dL gm/dL] (07/24/16 10:40 AM) Total Protein 6.8 gm/dL [6.1-7.7 gm/dL] (07/24/16 10:40 AM) Globulin [1.8-4.0 2.7 gm/dL gm/dL] (07/24/16 10:40 AM) ALT [0-55 U/L] 20 U/L (07/24/16 10:40 AM) AST [5-34 U/L] 17 U/L (07/24/16 10:40 AM) Alk Phos [40-150 101 U/L U/L] (07/24/16 10:40 AM) Bili Total [0.2-1.2 0.6 mg/dL mg/dL] (07/24/16 10:40 AM) Hgb A1c [4.1-5.6 %] 6.4 % *HI* (07/24/16 10:40 AM) eAvg Glucose 137.0 mg/dL (07/24/16 10:40 AM) 1Result Comment: Multiply eGFR results by 1.21 for race. Immunizations Vaccine Date Refusal Reason tetanus/diphth/pertuss (Tdap) adult/adol1 03/14/16 1Result Comment: Injected with 25G 1 neddle Procedures Procedure Date Related Diagnosis Body Site Cholecystectomy Partial hysterectomy1 Tonsillectomy 1has both ovaries Social History Social History Type Response Smoking Status Former smoker Assessment and Plan Extracted from: Title: Chronic Author: Jazmin Ferrell MD Date: 07/24/16 Assessment/Plan 1.Diabetes A1C today. F/up in 3 months. 2.Hypertension Stable on current regimen 3.Allergic rhinitis Stable on Nasocort
--- OUTSIDE RECORDS SUMMARY | 2019-03-06 01:11 | XMS REPORT | Referral Summary ---
Author Author [facility] Organization [facility] Address Unknown Phone Unavailable Care Team Providers Care Information Receptionist Name Role Phone No PCP, Pt States PCP Encounter VC Date(s): 08/21/15 - 08/21/15 [facility] [address] [place] [address] [facility] Discharge Diagnosis: Acute bacterial conjunctivitis of left eye Discharge Disposition: 01-Home or Self Care Attending Physician: Provider, Immediate Care Attending Physician: Daija Mendoza PA-C Admitting Physician: Provider, Immediate Care Vital Signs Most recent to 1 oldest [Reference Range]: Temperature Oral 36.7 degC [35.8-37.3 degC] (08/21/15 10:44 AM) Peripheral Pulse 80 bpm Rate [60-100 bpm] (08/21/15 10:44 AM) Blood Pressure 144/82 mmHg [90-140/60-90 mmHg] *HI* (08/21/15 10:44 AM) SpO2 91 % (08/21/15 10:44 AM) Problem List Condition Effective Dates Status Health Status Informant Morbid Active patient obesity(Confirmed) Allergies, Adverse Reactions, Alerts Substance Reaction Severity Status Cipro Active penicillins Active Medications Garamycin 0.3% ophthalmic solution 2 drops, Eye-Both, QID, X 7 days, # 5 mL, 0 Refill(s), Pharmacy: [id number] Start Date: 08/21/15 Stop Date: 08/28/15 Status: Ordered glyBURIDE Oral, Daily, 0 Refill(s) Start Date: 08/21/15 Status: Ordered lisinopril Oral, Daily, 0 Refill(s) Start Date: 08/21/15 Status: Ordered metFORMIN Oral, 0 Refill(s) Start [...] Extracted from: Title: Office Visit Note Author: Daija Mendoza PA-C Date: 08/21/15 Assessment/Plan 1.Acute bacterial conjunctivitis of left eye Patient will be treated with Garamycin drops to be used as prescribed. I did instruct her to treat both eyes. We discussed that she will follow up with any persistent symptoms. Discussed using warm packs to the eye and ice packs as needed. She will contact the clinic with any further questions or concerns. Medication instructions, risks and side effects were also discussed. Discussed contagiousness with this patient. Frequent handwashing encouraged as well. Ordered: Office Visit Level 3 Est 25027 Orders: gentamicin ophthalmic, 2 drops, Eye-Both, QID, X 7 days, # 5 mL, 0 Refill(s), Pharmacy: [id number]
--- OUTSIDE RECORDS SUMMARY | 2019-03-06 01:11 | XMS REPORT | Referral Summary ---
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 Role Phone Jazmin Ferrell PCP Encounter VC Date(s): 03/15/16 - 03/15/16 [facility], [facility] Medicine [address] [place] [id number] Discharge Diagnosis: Left arm cellulitis Discharge Disposition: 01-Home or Self Care Attending Physician: Margaret Freeman Admitting Physician: Margaret Freeman Vital Signs Most recent to 1 oldest [Reference Range]: Apical Heart Rate 75 bpm [60-100 bpm] (03/15/16 1:02 PM) Blood Pressure 140/80 mmHg [90-140/60-90 mmHg] (03/15/16 1:02 PM) SpO2 98 % (03/15/16 1:02 PM) Problem List Condition Effective Dates Status Health Status Informant Allergic Active rhinitis(Confirmed) Pseudotumor Active cerebri(Confirmed) Diabetes(Confirmed) Active Hyperlipidemia(Confi Active rmed) Hypertension(Confirm Active ed) Morbid Active patient obesity(Confirmed) Allergies, Adverse Reactions, Alerts Substance Reaction Severity Status Cipro Active penicillins Active Medications clindamycin 300 mg oral capsule 300 mg 1 caps, Oral, q8hr, X 10 days, # 30 caps, 0 Refill(s), Pharmacy: [facility][id number], 1 caps Oral q8hr,x10 days Start Date: 03/13/16 Stop Date: 03/23/16 Status: Ordered glyBURIDE 5 mg oral tablet 5 mg, Oral, Daily, # 90 tabs, 1 Refill(s), Pharmacy: [facility]/pharmacy #[id number], 5 mg O ral Daily Start Date: 01/25/16 Status: Ordered lisinopril 5 mg oral tablet 5 mg, Oral, Daily, # 90 tabs, 1 Refill(s), Pharmacy: [facility]/pharmacy #[id number], 5 mg O ral Daily Start Date: 01/25/16 Status: Ordered metFORMIN 1000 mg oral tablet, extended release 1,000 mg 1 tabs, Oral, BID, # 180 tabs, 1 Refill(s), Pharmacy: [facility]/pharmacy #[id number], 1 tabs Oral BID Start Date: 01/25/16 Status: Ordered Nasacort AQ sprays, Nasal, Daily, 0 Refill(s) Start Date: 01/23/16 Status: Ordered predniSONE 20 mg oral tablet 20 mg 1 tabs, Oral, BID, X 5 days, # 10 tabs, 0 Refill(s), Pharmacy: [facility] #[id number], 1 tabs Oral BID,x5 days Start Date: 03/13/16 Stop Date: 03/18/16 Status: Ordered simvastatin 40 mg oral tablet 40 mg, Oral, Bedtime (once a day), # 90 tabs, 1 Refill(s), Pharmacy: [facility] #[id number], 40 mg Oral Bedtime (once a day) [...] smoker Assessment and Plan Extracted from: Title: arm cellulitis Author: Margaret Freeman Date: 03/15/16 Assessment/Plan 1.Left arm cellulitis she is improving and tolerating the clindamycin and prednisone. Reviewed side effects, effects on BS and signs of infection/worsening to watch for. Call at anytime if concerns. Ordered: Office Visit Level 3 Est [id number]
--- NOTE | 2019-03-06 06:20 | Diagnostic Imaging Report ---
INDICATION: Stroke COMPARISON: None available TECHNIQUE: Single radiograph of the chest dated 03/05/2019. FINDINGS: The cardiac silhouette is borderline enlarged. Central pulmonary vascular congestion is present. Minimal diffuse prominence of the pulmonary interstitium. Mild right basilar superimposed pulmonary opacities also noted. No significant pleural effusion. No pneumothorax. No acute osseous abnormality. IMPRESSION: Constellation of findings felt to relate to volume overload/mild congestive heart failure with pulmonary vascular congestion and mild interstitial edema. No significant pleural effusion. Superimposed right basilar atelectasis and/or pneumonitis. Dictated by: Dictated on workstation # [id number]
--- NOTE | 2019-03-06 06:24 | Diagnostic Imaging Report ---
PROCEDURE: CT head wo r/o stroke. TECHNIQUE: Multiple contiguous axial images were obtained through the brain without the use of intravenous contrast. Auto Exposure Controls were utilized during the CT exam to meet ALARA standards for radiation dose reduction. INDICATION: Stroke, dizziness COMPARISON: None available FINDINGS: No intracranial hemorrhage. No intracranial mass, mass effect, midline shift, herniation, hydrocephalus, or extra-axial fluid collection. No CT evidence of an acute ischemic infarction. The orbits are unremarkable. Complete opacification of the left maxillary sinus with associated mucoperiosteal thickening of the left maxillary sinus izquierdo. Partial opacification of anterior left ethmoidal air cells extending into the left frontal sinus. The mastoid air cells and middle ear cavities are clear. The calvarium and extracalvarial soft tissues are unremarkable. IMPRESSION: No acute intracranial abnormality. Extensive left-sided paranasal sinus disease with complete opacification of the left maxillary sinus. A component of this is chronic in nature given mucoperiosteal thickening of the left maxillary sinus izquierdo. If there remains concern for underlying occult infarction, further evaluation with MRI of the brain would be recommended. Agree with preliminary interpretation. Dictated by: Dictated on workstation # [id number]
== END 2019-03-05 23:40 | disposition home or self-care (01) ==
LOC: ER FS 21:57
DX: R42 Dizziness and giddiness (principal); Z88.0 Allergy status to penicillin; Z88.1 Allergy status to other antibiotic agents
CPT/HCPCS: 36415; 70450; 71045; 80053; 82962; 83605; 83735; 85025

== ENCOUNTER 2019-05-25 21:15 | Emergency (ER) | payer BC, OTHER ==
[~2019-05-25] VITALS: Ht 172.7 cm; Wt 157.9 kg
[2019-05-25 21:28] VITALS: BP 146/66
--- NOTE | 2019-05-25 21:33 | ED Neurological Problem ---
General Chief Complaint: Neurological Problems Stated Complaint: RT SIDE NUMB, LIGHT HEADED Source: patient History of Present Illness Date Seen by Provider: May 25, 2019 Time Seen by Provider: 21:28 Initial Comments 44-year-old female presenting with complaints of right sided numbness and weakness. She states that this started at 2100 tonight suddenly. She was sitting at home and was getting the to let her dogs out when she suddenly had weakness and numbness on the right side. She does have a history of pseudotumor cerebri and has never had symptoms like this. She denies any headache or pain. Her weakness and numbness has been rapidly improving but has not completely resolved. She denies any chest pain or shortness of breath. She has no nausea or vomiting. She has no change in her vision. She has not had any burning or pain with urination. Allergies and Home Medications Allergies Coded Allergies: Penicillins (Verified Allergy, Unknown, 03/05/19) ciprofloxacin (Verified Allergy, Unknown, 03/05/19) Uncoded Allergies: ANY MED THAT INCREASES HEAD PRESSUR (Allergy, Unknown, 03/05/19) Patient Home Medication List Home Medication List Reviewed: Yes Review of Systems Review of Systems Constitutional: No chills, No dizziness, No fever; weakness (right sided) Eyes: Denies Photophobia, Denies Vision Changes Ears, Nose, Mouth, Throat: denies ear pain, denies ear discharge, denies nose discharge Respiratory: No cough, No short of breath Cardiovascular: No chest pain, No edema, No palpitations Gastrointestinal: No nausea, No vomiting Genitourinary: No dysuria, No frequency Musculoskeletal: muscle weakness (right sided in arm and leg) Psychiatric/Neurological: Denies Headache; Numbness (right arm and leg) Endocrine: No Symptoms Reported Past Cqfeyes-Iuzpdw-Syrntk Hx Past Med/Social Hx: Reviewed Nursing Past Med/Soc Hx Patient Social History 2nd Hand Smoke Exposure: No Recent Foreign Travel: No Contact w/Someone Who Travel: No Recent Hopitalizations: No Immunizations Up To Date Tetanus Booster (TDap): Unknown Seasonal Allergies Seasonal Allergies: No Past Medical History Surgeries: Yes (Optic Nerve Surgery) Respiratory: No Cardiac: Yes High Cholesterol, Hypertension Neurological: No Genitourinary: No Gastrointestinal: No Musculoskeletal: No Endocrine: Yes Diabetes, 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 0oz. 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 mild weakness to right arm and leg compared to left) Crainal Nerves: normal hearing, normal speech, PERRL; No facial asymmetry, No facial droop, No facial paresthesias, No facial weakness Motor/Sensory: sensory deficit (right arm and leg mild decrease in sensation compared to the left. ), weak motor strength RUE (4/5 strength), weak motor strength RLE (4/5 strength) Skin: normal color, warm/dry Stroke Onset of Symptoms Date of Onset of Symptoms: May 25, 2019 Time of Symptom Onset: 21:00 Onset of Symptoms: Yes NIH Stroke Scale Assessment Select: Initial Level of Consciousness: 0=Alert (0), Level of Consciousness- Questions: 0=Answers both month/age (0), LOC Commands: 0=Performs both tasks (0), Gaze: Normal (0), Visual John: 0=No visual loss (0), Facial Movement (Facial Paresis): 0=Normal symmetrical mnt (0), Motor Function-Arms Right: 1=Drift (1), Motor Function-Arms Left: 0=No drift (0), Motor Function-Legs Right: 1=Drift (1), Motor Function-Legs Left: 0=No drift (0), Limb Ataxia: 0=Absent (0), Sensory: 1=Mild to Moderate loss (1), Best Language: 0=No aphasia (0), Dysarthria: 0=Normal (0), Extinction & Inattention: 0=No abnormality (0), Total: 3 Stroke Thrombolytic Exclusion Age 18 or Over: Yes Acute intenal hemorrhage: No History of CVA: No Uncontrolled Coagulation Defec: No Intracranial Hemorrhage: No Severe Hypertension: No GI or Bleed: No Subarachnoid Hemorrhage: No Intracranial Neoplasm/Aneurysm: No Oral Anticoagulants: No Surgery or Trauma: No Puncture of Non-Compressible V: No Recent CPR: No Diabetic Hemorrhagic Retinopat: No Organ Biopsy: No Recent Obstetric Delivery: No Glucose: No Significant Hepatic Dysfunctio: No NIH Stoke Scale >22: No Bacterial Endocarditis: No Pericarditis: No Improving Symptoms: Yes Platelets: No TPA Contraindication: Yes (improving symptoms) Progress/Results/Core Measures Results/Orders Lab Results Laboratory Tests Test 05/25/19 21:29 05/25/19 21:54 Range/Units White Blood Count 12.6 H 4.3-11.0 10^3/uL Red Blood Count 4.88 4.35-5.85 10^6/uL Hemoglobin 13.3 11.5-16.0 G/DL Hematocrit 42 35-52 % Mean Corpuscular Volume 86 80-99 FL Mean Corpuscular Hemoglobin 27 25-34 PG Mean Corpuscular Hemoglobin Concent 32 32-36 G/DL Red Cell Distribution Width 15.0 H 10.0-14.5 % Platelet Count 313 130-400 10^3/uL Mean Platelet Volume 10.3 7.4-10.4 FL Neutrophils (%) (Auto) 67 42-75 % Lymphocytes (%) (Auto) 26 12-44 % Monocytes (%) (Auto) 6 0-12 % Eosinophils (%) (Auto) 0 0-10 % Basophils (%) (Auto) 0 0-10 % Neutrophils # (Auto) 8.4 H 1.8-7.8 X 10^3 Lymphocytes # (Auto) 3.3 1.0-4.0 X 10^3 Monocytes # (Auto) 0.8 0.0-1.0 X 10^3 Eosinophils # (Auto) 0.0 0.0-0.3 10^3/uL Basophils # (Auto) 0.1 0.0-0.1 10^3/uL Prothrombin Time 12.5 12.2-14.7 SEC INR Comment 0.9 0.8-1.4 Activated Partial Thromboplast Time 30 24-35 SEC Sodium Level 140 135-145 MMOL/L Potassium Level 4.3 3.6-5.0 MMOL/L Chloride Level 103 98-107 MMOL/L Carbon Dioxide Level 21 21-32 MMOL/L Anion Gap 16 H 5-14 MMOL/L Blood Urea Nitrogen 29 H 7-18 MG/DL Creatinine 0.92 0.60-1.30 MG/DL Estimat Glomerular Filtration Rate > 60 BUN/Creatinine Ratio 32 Glucose Level 173 H 70-105 MG/DL Calcium Level 9.4 8.5-10.1 MG/DL Corrected Calcium 9.3 8.5-10.1 MG/DL Magnesium Level 2.2 1.6-2.4 MG/DL Total Bilirubin 0.3 0.1-1.0 MG/DL Aspartate Amino Transf (AST/SGOT) 13 5-34 U/L Alanine Aminotransferase (ALT/SGPT) 15 0-55 U/L Alkaline Phosphatase 100 40-136 U/L Troponin I < 0.30 <0.30 NG/ML Total Protein 7.4 6.4-8.2 GM/DL Albumin 4.1 3.2-4.5 GM/DL Serum Test, Qualitative NEGATIVE NEGATIVE Glucometer 164 H 70-110 MG/DL My Orders Orders - ANNE CAZARES MD Cbc With Automated Diff (05/25/19 21:30) Protime With Inr (05/25/19 21:30) Partial Thromboplastin Time (05/25/19 21:30) Comprehensive Metabolic Panel (05/25/19 21:30) Troponin I (05/25/19 21:30) Hcg,Qualitative Serum (05/25/19 21:30) Chest 1 View Ap/Pa Only (05/25/19 21:30) Ekg Tracing (05/25/19:30) Accucheck Stat ONCE (05/25/19 21:30) Ed Iv/Invasive Line Start (05/25/19 21:30) Vital Signs Stroke Patient Q15M (05/25/19 21:30) Ct Head Wo-R/O Stroke (05/25/19 21:30) O2 (05/25/19 21:30) Monitor-Rhythm Ecg Trace Only (05/25/19 21:30) Dysphagia Screening Tool (05/25/19 21:30) Magnesium (05/25/19 21:30) Vital Signs/I&O 05/25/19 05/25/19 05/25/19 05/25/19 21:28 21:28 22:57 23:30 Temp 97.0 97.4 Pulse 82 82 81 80 Resp 12 12 20 16 B/P (MAP) 146/66 (92) 146/66 129/87 (101) 130/84 (99) Pulse Ox 95 95 94 96 O2 Delivery Room Air Room Air Room Air Progress Progress Note #1: Progress Note check stat CT head and labs with ECG and CXR to evaluate for acute stroke or hemorrhage. Progress Note #2: Progress Note recheck of pt when she returned from CT she was improved and her right arm was having improved strength and sensation. She still was having numbness/tingling in right foot. She had mild elevation of her white blood cell count 12.6. Her chemistry and coags otherwise were normal. She had a negative troponin from a cardiac standpoint. Her electrocardiogram did not show any acute significant abnormality. Her chest x-ray was also normal. Her CT of her head did come back showing area in the right cerebral hemisphere with hypodensity suggesting an acute or subacute infarct. She had diffuse microvascular changes as well. There is no hemorrhage. She did not have anything in the left hemisphere to account for her right-sided weakness and numbness. However with these changes on the right side since her last CT scan at the end of February 2019 and her new symptoms tonight will discuss with pt about transfer to facility that has MRI and Neurology capability for further evaluation and treatment. She would not be a tPA candidate since she was having rapidly improving symptoms. 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 Initial ECG Impression Date: May 25, 2019 Initial ECG Impression Time: 21:54 Initial ECG Rate: 75 Initial ECG Rhythm: Normal Sinus Initial ECG Comparisson: No Previous ECG Available Comment Sinus rhythm with a heart rate of 75 bpm. HI interval 159 ms. QT interval 388 ms and a QT corrected interval 434 ms. There is no acute ST elevation or ischemic changes. She does have some T-wave flattening in the lateral leads. There is no prior tracing available for comparison. Diagnostic Imaging Diagonstic Imaging: CT Plain Films/CT/US/NM/MRI: head Comments NAME: [facility] REC#: [id number] PT STATUS: REG ER : 1975 PHYSICIAN: ANNE CAZARES MD ADMIT DATE: 05/25/19/ER FS Draft Date of Exam:05/25/19 CT HEAD WO-R/O STROKE INDICATION: Right-sided weakness TECHNIQUE: Routine non contrast-enhanced axial images were obtained from the skull base to the vertex. Auto Exposure Controls were utilized during the CT exam to meet ALARA standards for radiation dose reduction COMPARISON: 03/05/2019 FINDINGS: Since the previous exam, there has been interval development of ellipsoid hypodensity within the right cerebellar hemisphere that measures 2 x 1.3 cm (image 9, series 2). There is no evidence of hemorrhagic transformation. There are subtle areas of decreased attenuation within the periventricular deep white matter surrounding the anterior horn of the right lateral ventricle as well as within the anterior limb of the left internal capsule. Findings are suggestive of chronic small vessel ischemic changes. There is no other large area of loss of sheldon-white matter junction differentiation to suggest acute territorial infarct. Ventricles and cortical sulci are normal in size and contour. There is no mass effect or midline shift. There is no other evidence of intra-or extra-axial intracranial hemorrhage. Bony calvarium is intact. Paranasal sinuses show complete opacification of the left maxillary sinus and left anterior ethmoid air cells. This is likely a chronic finding given the thickened appearance to the osseous portion of the left maxillary sinus. IMPRESSION: 1. New hypodensity of the right cerebellar hemisphere concerning for potential acute infarct. Correlation with MRI is recommended. No hemorrhagic transformation. 2. Small vessel ischemic changes within the in deep white matter; likely chronic. These findings are greater than expected given patient's age. Correlation with underlying risk factors is recommended Results were called to Dr. David Cazares by Dr. Lopez at approximately 2200 hours on 05/25/2019. Dictated on workstation # [id number] Dict: 05/25/192155 Trans: 05/25/192204 [facility] [id number] Interpreted by: LAZARO LOPEZ MD Electronically signed by: Reviewed: Reviewed by Me, Discussed w/Radiologist Diagonstic Imaging: Xray Plain Films/CT/US/NM/MRI: chest Comments [facility] [place] NAME: RYAN AMAYA [facility] REC#: [id number] PT STATUS: REG ER : 1975 PHYSICIAN: ANNE CAZARES MD ADMIT DATE: 05/25/19/ER FS Draft Date of Exam:05/25/19 CHEST 1 VIEW AP/PA ONLY INDICATION: Right-sided weakness COMPARISON: 03/05/2019 FINDINGS: Single frontal view of the chest demonstrates normal heart size and pulmonary vascularity. The lungs are well aerated and clear. No large pleural effusion or pneumothorax is seen. The visualized osseous structures show no acute abnormalities. IMPRESSION: 1. No acute cardiopulmonary process. Dictated on workstation # [id number] Dict: 05/25/192155 Trans: 05/25/192156 [facility] [id number] Interpreted by: LAZARO LOPEZ MD Electronically signed by: Reviewed: Reviewed by Me (and radiologist reading) Departure Impression Primary Impression: Transient ischemic attack Additional Impressions: Cerebral microvascular disease Acute right-sided weakness Disposition: XF [facility] Condition: Stable Transfer Time Spoke to Accepting Phy: 22:54 Transfer Progress Notes 0 call placed to transfer center and spoke with KARINA Taylor. She took the information and then called back at [address] Marin. He did not want anything given for blood pressure unless she was hypertensive over 200 systolic. She could have aspirin but not a candidate for tPA. Will call back with a room once it is available. Transfer Facility: [facility] Method of Transfer: EMS Departure-Patient Inst. Referrals: CLARKE RODRÍGUEZ MD (PCP) Primary Care Physician ANNE CAZARES MD May 25, 2019 21:33
[2019-05-25 21:46] LABS: HEMATOCRIT 42 % (35-52); HEMOGLOBIN 13.3 G/DL (11.5-16.0); MEAN CORPUSCULAR HEMOGLOBIN 27 PG (25-34); MEAN CORPUSCULAR HGB CONC 32 G/DL (32-36); MEAN CORPUSCULAR VOLUME 86 FL (80-99); WHITE BLOOD COUNT 12.6 10^3/uL (4.3-11.0)
[2019-05-25 21:47] LABS: BASOPHILS # (AUTO) 0.1 10^3/uL (0.0-0.1); BASOPHILS % (AUTO) 0 % (0-10); EOSINOPHILS % (AUTO) 0 % (0-10); LYMPHOCYTES # (AUTO) 3.3 X 10^3 (1.0-4.0); LYMPHOCYTES % (AUTO) 26 % (12-44); MEAN PLATELET VOLUME 10.3 FL (7.4-10.4); MONOCYTES # (AUTO) 0.8 X 10^3 (0.0-1.0); MONOCYTES % (AUTO) 6 % (0-12); NEUTROPHILS # (AUTO) 8.4 X 10^3 (1.8-7.8); NEUTROPHILS % (AUTO) 67 % (42-75); PLATELET COUNT 313 10^3/uL (130-400)
[2019-05-25 21:52] LABS: INR 0.9 (0.8-1.4); PROTHROMBIN TIME PATIENT 12.5 SEC (12.2-14.7)
--- NOTE | 2019-05-25 21:57 | Diagnostic Imaging Report ---
INDICATION: Right-sided weakness COMPARISON: 03/05/2019 FINDINGS: Single frontal view of the chest demonstrates normal heart size and pulmonary vascularity. The lungs are well aerated and clear. No large pleural effusion or pneumothorax is seen. The visualized osseous structures show no acute abnormalities. IMPRESSION: 1. No acute cardiopulmonary process. Dictated by: Dictated on workstation # [id number]
[2019-05-25 21:59] LABS: CHLORIDE 103 MMOL/L (98-107); POTASSIUM 4.3 MMOL/L (3.6-5.0); SODIUM 140 MMOL/L (135-145)
[2019-05-25 22:00] LABS: ALANINE AMINOTRANSFERASE 15 U/L (0-55); ALBUMIN 4.1 GM/DL (3.2-4.5); ALKALINE PHOSPHATASE 100 U/L (40-136); BILIRUBIN,TOTAL 0.3 MG/DL (0.1-1.0); BUN/CREATININE RATIO 32; CALCIUM 9.4 MG/DL (8.5-10.1); CARBON DIOXIDE 21 MMOL/L (21-32); CREATININE SERUM 0.92 MG/DL (0.60-1.30); GFR ESTIMATED > 60; GLUCOSE 173 MG/DL (70-105); TOTAL PROTEIN 7.4 GM/DL (6.4-8.2)
--- NOTE | 2019-05-25 22:06 | Diagnostic Imaging Report ---
INDICATION: Right-sided weakness TECHNIQUE: Routine non contrast-enhanced axial images were obtained from the skull base to the vertex. Auto Exposure Controls were utilized during the CT exam to meet ALARA standards for radiation dose reduction COMPARISON: 03/05/2019 FINDINGS: Since the previous exam, there has been interval development of ellipsoid hypodensity within the right cerebellar hemisphere that measures 2 x 1.3 cm (image 9, series 2). There is no evidence of hemorrhagic transformation. There are subtle areas of decreased attenuation within the periventricular deep white matter surrounding the anterior horn of the right lateral ventricle as well as within the anterior limb of the left internal capsule. Findings are suggestive of chronic small vessel ischemic changes. There is no other large area of loss of sheldon-white matter junction differentiation to suggest acute territorial infarct. Ventricles and cortical sulci are normal in size and contour. There is no mass effect or midline shift. There is no other evidence of intra-or extra-axial intracranial hemorrhage. Bony calvarium is intact. Paranasal sinuses show complete opacification of the left maxillary sinus and left anterior ethmoid air cells. This is likely a chronic finding given the thickened appearance to the osseous portion of the left maxillary sinus. IMPRESSION: 1. New hypodensity of the right cerebellar hemisphere concerning for potential acute infarct. Correlation with MRI is recommended. No hemorrhagic transformation. 2. Small vessel ischemic changes within the in deep white matter; likely chronic. These findings are greater than expected given patient's age. Correlation with underlying risk factors is recommended Results were called to Dr. David Dobbins by Dr. Kirkland at approximately 2200 hours on 05/25/2019. Dictated by: Dictated on workstation # [id number]
[2019-05-25 22:57] VITALS: BP 129/87
[2019-05-25 23:30] VITALS: BP 130/84
== END 2019-05-25 23:38 | disposition short-term general hospital (02) ==
LOC: EDUNIT# 21:15 → ER FS 21:16
DX: G45.9 Transient cerebral ischemic attack, unspecified (principal); R53.1 Weakness; I10 Essential (primary) hypertension; E78.00 Pure hypercholesterolemia, unspecified; E11.9 Type 2 diabetes mellitus without complications; Z86.011 Personal history of benign neoplasm of the brain; Z88.0 Allergy status to penicillin; Z88.1 Allergy status to other antibiotic agents
CPT/HCPCS: 36415; 70450; 71045; 80053; 82962; 83735; 84484; 84703; 85025; 85610; 85730; 93005; 93041

== ENCOUNTER → 2019-06-17 | Outpatient (CLI) | payer BC ==
--- NOTE | 2019-06-17 14:09 | Diagnostic Imaging Report ---
INDICATION: Chronic knee pain COMPARISON: None. FINDINGS: Three views of the left knee joint were obtained. There is no evidence of acute fracture or dislocation. Moderate osteoarthritic changes are noted consistent with joint space narrowing with prominent osteophyte formations, greatest involving the medial tibiofemoral and patellar trochlear compartments. Otherwise, joint spaces are maintained. There is no large joint effusion. Osseous structures are intact without evidence of acute fracture. No unexpected radiopaque foreign bodies are seen. IMPRESSION: 1. Moderate osteoarthritic changes to the left knee. 2. No acute fracture or dislocation. Dictated by: Dictated on workstation # [id number]
== END ==
LOC: RAD FS 13:49
PROVIDERS: ATTEND Family Medicine
DX: M17.12 Unilateral primary osteoarthritis, left knee (principal)
CPT/HCPCS: 73562

== ENCOUNTER 2021-09-29 12:02 | Emergency (ER) | payer SELFPAY ==
[~2021-09-29] VITALS: Ht 172.7 cm; Wt 168.7 kg
--- OUTSIDE RECORDS SUMMARY | 2021-09-29 12:07 | XMS REPORT | Clinical Summary ---
Author Author [facility] Organization [facility] Address Unknown Phone Unavailable Care Team Providers Care Tree Feller Name Role Phone Amauri Holley MD PCP Source Comments Some departments are not documenting in the electronic medical record. If you d o not see the information that you expected, contact Release of Information in [facility] [employer] Information Management department at [phone] for further assistan ce in locating additional records.[facility] Allergies Comments Active Allergy Reactions Severity Noted Date Ciprofloxacin HEADACHE Low 05/26/2019 Allergy recorded in SMS: PCN Penicillins ANAPHYLAXIS, High 06/07/2003 HIVES Medications End Date Status Medication Sig Dispensed Refills Start Date Active metFORMIN (GLUCOPHAGE) Take 1,000 mg 0 1,000 mg tablet by mouth twice daily with meals. Active lisinopril (PRINIVIL; Take 10 mg by 0 ZESTRIL) 10 mg tablet mouth daily. Active aspirin 81 mg chewable Chew one 90 tablet 3 tablet tablet by 9 mouth daily. Take with food. Active atorvastatin (LIPITOR) 80 Take one 90 tablet 1 mg tablet tablet by 9 mouth daily. 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 Medical History Medical History Date Comments Hypertension DM (diabetes mellitus) (HCC) Pseudotumor cerebri Lymph edema Social History Date Tobacco Use Types Packs/Day Years Used Former Smoker Cigarettes Smokeless Tobacco: Never Used Comments Alcohol Use Standard Drinks/Week Not Currently 0 (1 standard drink = 0.6 o z pure alcohol) Sex Assigned at Date Recorded Not on file Last Filed Vital Signs Reading Time Taken Comments Vital Sign 137/76 05/27/2019 11:39 AM CDT Blood Pressure 69 05/27/2019 11:39 AM CDT Pulse 36.8 C (98.3 F) 05/27/2019 11:39 AM CDT Temperature - - Respiratory Rate 97% 05/27/2019 11:39 AM CDT Oxygen Saturation - - Inhaled Oxygen Concentration 168.3 kg (371 lb) 05/26/2019 9:46 AM CDT Weight 172.7 cm (5' 8") 05/26/2019 9:46 AM CDT Height 56.41 05/26/2019 9:46 AM CDT Body Mass Index Plan of Treatment Health Maintenance Due Date Last Done Comments MICROALBUMIN 1973 HIV SCREENING 02/01/1988 DILATED EYE EXAM 1991 DTAP/TDAP VACCINES (1 - 1991 Tdap) FOOT EXAM 1991 HEPATITIS C SCREENING 1991 PHYSICAL (COMPREHENSIVE) 1991 EXAM CERVICAL CANCER SCREENING 1994 BREAST CANCER SCREENING 2013 HBA1C 11/26/2019 05/26/2019 INFLUENZA VACCINE 05/13/2021 Goals Goal Patient Associated Recent Progress Patient-Stat Aut hor Goal Type Problems ed? Have 3 meals a day Diet No Mackenzie Coronel, KARINA Results Not on filefrom Last 3 Months Insurance Type Payer Benefit Subscriber ID Effective Phone Address Plan / Dates Group PPO [employer]BS [employer] [id number] 2017-P [phone] [id number] [place] [address] [phone] Advance Directives Patient [employer] Attendant Explanation Type Date Recorded Advance 05/26/2019 5:22 AM Directive/DPOA Date Inactivated Comments Code Status Date Activated 05/27/2019 3:47 PM Full Code 05/26/2019 1:43 AM Provider has discussed Code Status No, more discussi on w/Patient or Family? needed Care Teams Start Date End Date Tree Feller Relationship Specialty 05/26/19 Amauri Holley MD PCP - General [address] [address]
[2021-09-29] MEDS ORDERED: LACTATED RINGERS 1,000 ML IV STA (12:32)
[2021-09-29 12:45] LABS: BASOPHILS % (AUTO) 0 % (0-10); EOSINOPHILS % (AUTO) 0 % (0-10); HEMATOCRIT 43 % (35-52); HEMOGLOBIN 13.4 g/dL (11.5-16.0); LYMPHOCYTES # (AUTO) 1.2 10^3/uL (1.0-4.0); LYMPHOCYTES % (AUTO) 19 % (12-44); MEAN CORPUSCULAR HEMOGLOBIN 27 pg (25-34); MEAN CORPUSCULAR HGB CONC 31 g/dL (32-36); MEAN CORPUSCULAR VOLUME 86 fL (80-99); MONOCYTES # (AUTO) 0.4 10^3/uL (0.0-1.0); MONOCYTES % (AUTO) 7 % (0-12); NEUTROPHILS # (AUTO) 4.4 10^3/uL (1.8-7.8); NEUTROPHILS % (AUTO) 72 % (42-75); PLATELET COUNT 213 10^3/uL (130-400); WHITE BLOOD COUNT 6.1 10^3/uL (4.3-11.0)
[2021-09-29 12:52] LABS: ALBUMIN 3.5 GM/DL (3.2-4.5); POTASSIUM 4.9 MMOL/L (3.6-5.0)
[2021-09-29 12:54] LABS: CALCIUM 8.6 MG/DL (8.5-10.1)
[2021-09-29 12:55] LABS: TOTAL PROTEIN 7.5 GM/DL (6.4-8.2)
[2021-09-29 12:57] LABS: BILIRUBIN,TOTAL 0.6 MG/DL (0.1-1.0)
[2021-09-29 12:59] LABS: CREATININE SERUM 0.95 MG/DL (0.60-1.30)
[2021-09-29] MEDS ORDERED: ONDANSETRON 4 MG/2 ML (SDV) Z0FRAN IV PRN (13:00)
[2021-09-29] MEDS ORDERED: diphenhydrAMINE 50 MG/ML INJ (BENADRYL) IV PRN (13:00)
[2021-09-29] MEDS ORDERED: EPINEPHrine INJECTION 1 MG/ML AMP IM PRN (13:00)
[2021-09-29] MEDS ORDERED: ACETAMINOPHEN 500 MG TAB (TYLENOL) PO PRN (13:00)
[2021-09-29] MEDS ORDERED: BAMLANIVIMAB 700 MG/ETESEVIMAB 1,400 MG IN NS IV ONE ×3 (13:00)
--- NOTE | 2021-09-29 13:00 | ED Cough/URI ---
General Chief Complaint: COVID19 Suspect/Confirmed Stated Complaint: COVID +/SOA Nursing Triage Note: PT TO RM 10 BY WHEELCHAIR WITH COMPLAINT OF INCREASING SOA. PT TESTED POSITIVE FOR COVID ON FRIDAY WITH SYMPTOMS STARTING FRIDAY. STATES HAS INFUSION SCHEDULED FOR FRIDAY. Source: patient Exam Limitations: no limitations History of Present Illness Date Seen by Provider: Sep 29, 2021 Time Seen by Provider: 12:25 Initial Comments Here with increasing shortness of breath. Tested positive for COVID-19 on 09/25/2021 with symptoms starting on 09/23/2021. She is not vaccinated. She is obese with neurological disorder and states that she was worried about Covid vaccination due to the pseudotumor cerebri that she has and that she does not react well to medication sometimes. She is set up for infusion on Friday. She does not have pulse oximeter at home. Has had fever, chills and cough. States eating and drinking okay. She is diabetic and overall quite high risk especially with BMI. Timing/Duration: week, getting worse Severity/Quality: moderate, dry cough Prior Episodes/Possible Cause: no prior episodes Modifying Factors: Improves With Rest Associated Symptoms: cough, fever/chills, muscle aches, nasal congestion, shortness of breath, sore throat Allergies and Home Medications Allergies Coded Allergies: Penicillins (Verified Allergy, Unknown, 03/05/19) ciprofloxacin (Verified Allergy, Unknown, 03/05/19) Uncoded Allergies: ANY MED THAT INCREASES HEAD PRESSUR (Allergy, Unknown, 03/05/19) Patient Home Medication List Home Medication List Reviewed: Yes Review of Systems Review of Systems Constitutional: see HPI, chills, fever EENTM: nose congestion; No ear pain Respiratory: cough, short of breath Cardiovascular: no symptoms reported Gastrointestinal: No diarrhea, No vomiting Genitourinary: no symptoms reported Musculoskeletal: No joint pain; muscle pain Skin: no symptoms reported All Other Systems Reviewed Negative Unless Noted: Yes Past Glwyptf-Zyzaxa-Awftds Hx Patient Social History Tobacco Use?: No Substance use?: No Alcohol Use?: No Immunizations Up To Date Tetanus Booster (TDap): Unknown Seasonal Allergies Seasonal Allergies: No Past Medical History Surgeries: Yes (Optic Nerve Surgery) Respiratory: No Cardiac: Yes High Cholesterol, Hypertension Neurological: No Genitourinary: No Gastrointestinal: No Musculoskeletal: No Endocrine: Yes Diabetes, 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 0oz. 157.161094bl; 56.00 BMI Method:Stated General Appearance: WD/WN, no apparent distress, obese HEENT: PERRL/EOMI, pharynx normal Neck: full range of motion, supple Respiratory: lungs clear, normal breath sounds Cardiovascular: regular rate, rhythm, no murmur Gastrointestinal: non tender, soft Extremities: non-tender, normal inspection Neurologic/Psychiatric: alert, oriented x 3 Skin: normal color, warm/dry Progress/Results/Core Measures Suspected Sepsis SIRS Temperature: Pulse: 76 Respiratory Rate: 17 Laboratory Tests 09/29/21 12:35: White Blood Count 6.1 Blood Pressure 120 /81 Mean: 94 Laboratory Tests 09/29/21 12:35: Creatinine 0.95, Platelet Count 213, Total Bilirubin 0.6 Results/Orders Lab Results Laboratory Tests Test 09/29/21 12:35 Range/Units White Blood Count 6.1 4.3-11.0 10^3/uL Red Blood Count 4.97 3.80-5.11 10^6/uL Hemoglobin 13.4 11.5-16.0 g/dL Hematocrit 43 35-52 % Mean Corpuscular Volume 86 80-99 fL Mean Corpuscular Hemoglobin 27 25-34 pg Mean Corpuscular Hemoglobin Concent 31 L 32-36 g/dL Red Cell Distribution Width 15.3 H 10.0-14.5 % Platelet Count 213 130-400 10^3/uL Mean Platelet Volume 10.0 9.0-12.2 fL Immature Granulocyte % (Auto) 2 % Neutrophils (%) (Auto) 72 42-75 % Lymphocytes (%) (Auto) 19 12-44 % Monocytes (%) (Auto) 7 0-12 % Eosinophils (%) (Auto) 0 0-10 % Basophils (%) (Auto) 0 0-10 % Neutrophils # (Auto) 4.4 1.8-7.8 10^3/uL Lymphocytes # (Auto) 1.2 1.0-4.0 10^3/uL Monocytes # (Auto) 0.4 0.0-1.0 10^3/uL Eosinophils # (Auto) 0.0 0.0-0.3 10^3/uL Basophils # (Auto) 0.0 0.0-0.1 10^3/uL Immature Granulocyte # (Auto) 0.1 0.0-0.1 10^3/uL Sodium Level 136 135-145 MMOL/L Potassium Level 4.9 3.6-5.0 MMOL/L Chloride Level 105 98-107 MMOL/L Carbon Dioxide Level 19 L 21-32 MMOL/L Anion Gap 12 5-14 MMOL/L Blood Urea Nitrogen 18 7-18 MG/DL Creatinine 0.95 0.60-1.30 MG/DL Estimat Glomerular Filtration Rate 63 BUN/Creatinine Ratio 19 Glucose Level 145 H 70-105 MG/DL Calcium Level 8.6 8.5-10.1 MG/DL Corrected Calcium 9.0 8.5-10.1 MG/DL Total Bilirubin 0.6 0.1-1.0 MG/DL Aspartate Amino Transf (AST/SGOT) 24 5-34 U/L Alanine Aminotransferase (ALT/SGPT) 14 0-55 U/L Alkaline Phosphatase 85 40-136 U/L C-Reactive Protein High Sensitivity 13.16 H 0.00-0.50 MG/DL Total Protein 7.5 6.4-8.2 GM/DL Albumin 3.5 3.2-4.5 GM/DL My Orders Orders - GRICELDA HANSON MD Cbc With Automated Diff (09/29/21 12:32) Comprehensive Metabolic Panel (09/29/21 12:32) Hs C Reactive Protein (09/29/21 12:32) Chest 1 View, Ap/Pa Only (09/29/21 12:32) Ed Iv/Invasive Line Start (09/29/21 12:32) Lactated Ringers (Lr 1000 Ml Iv Solution (09/29/21 12:32) Bamlanivimab (Non Form) (Bamlanivimab (N (09/29/21 13:00) Epinephrine 1 Mg Injection (Adrenalin I (09/29/21 13:00) Diphenhydramine Injection (Benadryl Inje (09/29/21 13:00) Ondansetron Injection (Zofran Injectio (09/29/21 13:00) Acetaminophen Tablet (Tylenol Tablet) (09/29/21 13:00) Medications Given in ED Current Medications Medications Dose Ordered Sig/Neha Route Start Time Stop Time Status Last Admin Dose Admin Bamlanivimab 700 mg/Etesevimab 1400 mg/Sodium Chloride 160 ml @ 310 mls/hr ONCE ONCE IV 09/29/21 13:00 09/29/21 13:30 DC 09/29/21 13:43 310 MLS/HR Vital Signs/I&O 09/29/21 09/29/21 12:26 13:42 Temp 36.0 Pulse 76 65 Resp 17 18 B/P (MAP) 120/81 (94) 121/74 Pulse Ox 91 92 O2 Delivery Room Air Room Air Capillary Refill : Less Than 3 Seconds Blood Pressure Mean: 94 Progress Note : Progress Note Seen and evaluated. IV, labs and chest x-ray ordered. Patient has O2 saturations 92 to 93% on room air. She is very high risk for severe infection from Covid due to obesity, diabetes and hypertension history. She is set up for monoclonal antibody on Friday but I would like to get that to her sooner given her progression of symptoms. This was ordered. I did have discussion with the patient for risk and benefits and alternative therapies and patient would like to pursue monoclonal antibody therapy. She has literature. Monitor patient. 1350: Patient is receiving monoclonal antibody infusion currently. O2 saturatio ns have remained approximately 92% while resting. Monitor patient. 1515: Infusion complete and monitoring time complete. Patient is actually feeling a little better currently. Discharged home with return precautions. Patient verbalized understanding of instructions and agreement with plan. Diagnostic Imaging Diagonstic Imaging: Xray Plain Films/CT/US/NM/MRI: chest Comments Bilateral airspace opacities consistent with Covid infection. See full report for details. Reviewed by me. Reviewed: Reviewed by Me Departure Impression Primary Impression: COVID-19 virus infection Disposition: HOME, SELF-CARE Condition: Stable Departure-Patient Inst. Decision time for Depature: 15:15 Referrals: CLARKE RODRÍGUEZ MD (PCP/Family) Primary Care Physician Patient Instructions: COVID-19 (DC), Bamlanivimab and Etesevimab FDA Fact Sheet Add. Discharge Instructions: All discharge instructions reviewed with patient and/or family. Voiced understanding. Drink plenty of fluids and get plenty of rest. You will need to remain in isolation for at least 10 days with day 0 __12// and you will count for 10 days from there. You must be symptom improving and fever free in the last 3 days without fever reducing medicines to be out of isolation after the 10th day. The health department should contact you to direct timeframe as well. Monitor your oxygen saturation while resting. Currently it is __92__ percent. If that starts to decline to below 90, please return immediately to the emergency department for further evaluation. You may purchase oxygen saturation monitor at [facility] or [facility]. You may take ibuprofen 600 mg every 8 hours as needed for fever or pain. You may take Tylenol/acetaminophen 1000 mg every 8 hours as needed for fever or pain. Return for worse pain, fever, vomiting, weakness, breathing problems or other concerns as needed. Copy Copies To 1: CLARKE RODRÍGUEZ MD, TIMOTHY D MD Sep 29, 2021 13:00
--- NOTE | 2021-09-29 13:22 | Diagnostic Imaging Report ---
Indication: COVID 19 positive and shortness of air. TIME OF EXAM: 12:59 PM Correlation is made with prior chest 05/25/2019. Heart size stable. There are patchy airspace infiltrates in the mid and lower lung zones bilaterally consistent with COVID 19 pneumonia. No effusion or pneumothorax is detected. IMPRESSION: Bilateral airspace infiltrates consistent with pneumonia. Report was faxed to Christopher/RN Infection Control by neha at 1:21pm. Dictated by: Dictated on workstation # [id number]
[2021-09-29 15:53] VITALS: BP 137/73
== END 2021-09-29 15:53 | disposition home or self-care (01) ==
LOC: EDUNIT# 12:02 → ER 12:05
DX: U07.1 COVID-19 (principal); I10 Essential (primary) hypertension; E11.9 Type 2 diabetes mellitus without complications; E66.9 Obesity, unspecified; Z68.43 Body mass index [BMI] 50.0-59.9, adult
CPT/HCPCS: 36415; 71045; 80053; 85025; 86141